=== PATIENT | male | born 1945 | race Caucasian/White ===

== ENCOUNTER → 2017-09-17 | Day surgery (SDC) | payer BC ==
[2017-09-16 10:54] VITALS: Ht 175.3 cm; Wt 89.5 kg
--- NOTE | 2017-09-16 16:09 | History and Physical: Surg Cnt ---
History & Physical Date Sep 16, 2017. Chief Complaint nose bleed History of Present Illness The patient is a 72 year old male with complaints of persistent epistaxis Past Medical/Surgical History Medical Problems: (1) Atrial flutter by electrocardiogram (2) Diabetes mellitus type 2 (3) Gastroesophageal reflux disease (4) Hypothyroidism (5) Lactose intolerance Additional History Hepatic Disease: No Endocrine Disorder: No Kidney Disease: No Hypertension: No Heart Disease: Yes Bleeding Tendencies: Yes Infectious Diseases: No Allergies Coded Allergies: Sulfamethoxazole w/Trimethoprim (Verified Adverse Reaction, Mild, BAD DIARRHEA, 09/16/17) Lactose Intolerance (Verified Adverse Reaction, Unknown, BLOATING/FULLNESS , 09/16/17) CONTROLLED W/ LACTASE Home Medications Scheduled Allopurinol (Zyloprim), 300 MG PO QPM Aspirin Enteric Coated (Ecotrin Or Generic), 81 MG PO QAM Atorvastatin (Lipitor), 20 MG PO QPM Dabigatran Etexilate Mesylate (Pradaxa), 1 CAP PO BID Digestive Enzymes (Papaya Enzyme), 1 TAB PO QAM Eplerenone (Eplerenone), 25 MG PO QAM Eszopiclone (Lunesta), 3 MG PO HS Furosemide (Lasix), 2 TABS PO 3XWK Guaifenesin Ext Rel (Mucinex Ext Rel), 2 TABS PO BID Levothyroxine Sodium (Synthroid), 175 MCG PO QAM Metoprolol Tartrate (Lopressor) (Lopressor), 1 TAB PO QPM Metoprolol Tartrate (Lopressor) (Lopressor), 2 TABS PO QAM Multivitamin (Multivitamin), 1 TAB PO QAM Nitroglycerin (Nitrostat), 0.4 MG UT PRN Potassium Chloride (Micro-K Ext Rel), 10 MEQ PO QPM Probiotic Product (Probiotic), 2 CAP PO QAM Rabeprazole Sodium (Aciphex), 20 MG PO QAM Sotalol Hcl (Sotalol Hcl), 1 TAB PO BID Scheduled PRN Lactase (Lactase Fast Acting), 1 TAB PO WM PRN for DAIRY INTAKE Miscellaneous Medications Magnesium Oxide (Mag-Ox), 400 MG PO Physical Examination Skin: warm/dry, no rash Eyes: normal inspection, EOMI, sclerae normal ENT: normal ENT inspection, pharynx normal Head: normocephalic, atraumatic Neck: supple, no adenopathy, trachea midline Respiratory/Chest: lungs clear, normal breath sounds, no respiratory distress Cardiovascular: regular rate, rhythm, no edema, no murmur Abdomen / GI: normal bowel sounds, non tender Back: normal inspection Extremities: normal inspection, normal range of motion Neurologic/Psych: no motor/sensory deficits, alert, normal reflexes, oriented x 3 Diagnosis epistaxis Plan of Treatment endoscopic cautery
[~2017-09-17] VITALS: Ht 175.3 cm; Wt 89.5 kg
[~2017-09-17] MED LIST: ALLO300T2 PO; ASPI81TA21 PO; ATOR-54 PO; BACITRACIN OINT 15 GM TUBE ONE; DABI1CAP PO; DIGETAB13 PO; EPLE25TA3 PO; ESZO3TAB15 PO; EpINEphrine INJ 1MG/ML AMP 1 MG/ML AMP ONE; FURO-85 PO; GELATIN SPONGE 12-7MM ONE; GFNSR600 PO; HYDROCODONE/ACETAMOPHEN 5/325MG TAB PO PRN; LEVO175T PO; LIDO 2%/EPINEPHRINE 1:100000 20 ML VIAL INFIL ONE; LIDOCAINE 4% MPF SOAK 5 ML = 1 DOSE TOP ONE; MAGN400T6 PO; METO25TA56 PO; MISCCAP80 PO; MULT-506 PO; NTRGSL/4 UT; POTA10CA28 PO; RABE20TA5 PO; SODIUM CHLORIDE 0.9% 1000ML 1,000 ML IV SCH; SOTA120T PO; TETRACAINE 4% TOPICAL SOLUTION TOP ONE; [UNRECOGNIZED DRUG - CODE] PO
--- NOTE | 2017-09-17 07:00 | History & Physical Bridge Note ---
H&P Re-Evaluation Bridge Note: I have examined the patient, reviewed the History & Physical and in the interval since the performance of the History & Physical I have noted the following changes of clinical significance: No changes noted
--- NOTE | 2017-09-17 09:50 | Discharge Instructions-SurgCtr ---
Discharge Instructions Date of Service Sep 17, 2017. Visit Reason for Visit: Epistaxis Discharge Discharge Diagnosis / Problem: same Discharge Goals Goal(s): Therapeutic intervention Activity Recommendations Activity Limitations: resume your previous activity Anesthesia . Post Anesthesia Instructions: If you have had General Anesthesia or IV Sedation: * Do not drive today. * Resume driving when surgeon permits. * Do not make important decisions or sign legal documents today. * Call surgeon for: 1. Temperature elevations greater than 101 degrees F. 2. Uncontrollable pain. 3. Excessive bleeding. 4. Persistent nausea and vomiting. 5. Medication intolerance (nausea, vomiting or rash). * For nausea and vomiting use only clear liquids such as: tea, soda, bouillon until nausea subsides, then gradually increase diet as tolerated. * If you have any concerns or questions, call your surgeon's office. If physician is unavailable and it is an emergency, call 911 or go to the nearest emergency room. . Instructions / Follow-Up Instructions / Follow-Up ACTIVITY RECOMMENDATIONS: * Being up and around is good, but no strenuous activity, heavy lifting or physical exertion for one week. * Keep your head elevated 30 degrees when lying down or sleeping. * Do not blow your nose for 48 hours, sniff back instead. * Avoid hot showers. OVER THE COUNTER MEDICATIONS: * You may use Tylenol * Avoid aspirin or aspirin containing products, e.g. as they may increase bleeding. SPECIAL CARE INSTRUCTIONS: * Expect to have bloody drainage from your nose and/or down your throat for one to three days. Change drip pad as needed. * Begin irrigating your nose with saline solution today, at least six to ten times per day and sniff back to help remove old clots or crust. * You may experience nasal and facial congestion, pain and pressure, this is normal. * Please call with any significant and/or progressive pain, redness, swelling around the eyes, visual changes, fever of 101.5 degrees F, active bleeding or any problems or concerns. * If active bleeding occurs, spray the nose three times at one minute intervals with Afrin spray and call or cell phone: . If unable to reach the doctor, go to the nearest Emergency Department. Special Diet: * Avoid extremely hot fluids. FOLLOW UP VISIT: Follow-up Visit with Dr. Ramy If not already scheduled, please call to schedule. Diet Recommendations Home Diet: no limitations Pending Studies Studies pending at discharge: no Medical Emergencies . Who to Call and When: Medical Emergencies: If at any time you feel your situation is an emergency, please call 911 immediately. . Non-Emergent Contact Non-Emergency issues call your: Primary Care Provider . . "Provider Documentation" section prepared by Mary Kay Mccann. Kiersten PA Drug Monitoring Program Search Results: no issues identified
--- NOTE | 2017-09-17 09:52 | History & Physical Bridge Note ---
H&P Re-Evaluation Bridge Note: I have examined the patient, reviewed the History & Physical and in the interval since the performance of the History & Physical I have noted the following changes of clinical significance: ASA class 3. No changes noted
[2017-09-17 11:41] VITALS: TEMP 36.5
[2017-09-17 11:55] VITALS: BP 121/73; PULSE 67; O2SAT 94
--- NOTE | 2017-09-17 12:13 | OPERATIVE REPORT ---
DATE OF OPERATION: 09/17/2017 PREOPERATIVE DIAGNOSIS: Epistaxis. POSTOPERATIVE DIAGNOSIS: Same. PROCEDURE: Endoscopic cautery and right nasal packing. SURGEON: Mary Kay Mccann MD ANESTHESIA: Strict local. COMPLICATIONS: None. BLOOD LOSS: Less than 20 mL. HISTORY OF PRESENT ILLNESS: A 72-year-old gentleman with severe bleeding this past weekend, he was treated at [facility] but continues to have bleeding and clots in the right nostril and less so in the left nostril. Above procedure felt to be indicated. DESCRIPTION OF PROCEDURE: The patient was brought to the operating room and placed in the supine position. Topical anesthesia was obtained using 4% tetracaine on cottonoid pledgets. Injection of 2% Xylocaine with 1:100,000 strength epinephrine was also used. The major bleeder was under the clot on the right side of the septum approximately 2.5 cm in at the mid septum. This was anesthetized using injection of 2% Xylocaine with 1:100,000 strength epinephrine and then cauterized using the suction cautery. There was another bleeding site along the right inferior turbinate, which was cauterized. On the left side of the nose, there were 2 spots on the left side of the septum and then another 2 spots at the anterior and mid portion of the left inferior turbinate. All 4 of these sites on the left side were cauterized using the suction cautery after injecting with 2% Xylocaine with 1:100,000 strength epinephrine. The half piece of Gelfoam was placed along the right side of the septum along the opposite major bleeding site. The patient tolerated the procedure well and was taken to the recovery area in satisfactory condition. I attest to the content of the Intraoperative Record and any orders documented therein. Any exceptions are noted below. MELLISSAD
== END | disposition home or self-care (01) ==
LOC: X.SURG 09:13
PROVIDERS: ATTEND Otolaryngology
DX: R04.0 Epistaxis (principal); E11.9 Type 2 diabetes mellitus without complications; E03.9 Hypothyroidism, unspecified; K21.9 Gastro-esophageal reflux disease without esophagitis; Z79.899 Other long term (current) drug therapy

== ENCOUNTER 2018-02-07 05:05 | Inpatient (IN) | payer BC, OTHER ==
[2018-02-07] VITALS (34 sets, daily range): BP systolic 65–105; BP diastolic 30–76; PULSE 60–154; TEMP 36.5–37.2; O2SAT 87–100; Ht 167.6 cm; Wt 113.0 kg
[~2018-02-07] VITALS: Ht 167.6 cm; Wt 113.0 kg
[~2018-02-07 05:05] MED LIST changes: +ASPI-319 PO; -ASPI81TA21 PO; -BACITRACIN OINT 15 GM TUBE ONE; +ETOMIDATE 2 MG/ML 20 ML VIAL IV ONE; -EpINEphrine INJ 1MG/ML AMP 1 MG/ML AMP ONE; +FENTANYL CITRATE 100 MCG 2 ML CARP IV ONE; -GELATIN SPONGE 12-7MM ONE; -HYDROCODONE/ACETAMOPHEN 5/325MG TAB PO PRN; -LIDO 2%/EPINEPHRINE 1:100000 20 ML VIAL INFIL ONE; -LIDOCAINE 4% MPF SOAK 5 ML = 1 DOSE TOP ONE; +MIDAZOLAM HCL 5 MG/ML 2ML VIAL IV ONE; -SODIUM CHLORIDE 0.9% 1000ML 1,000 ML IV SCH; +SUCCINYLCHOLINE CHLORIDE 20 MG/ML 10 ML VIAL IV ONE; -TETRACAINE 4% TOPICAL SOLUTION TOP ONE
[2018-02-07] MEDS ORDERED: METF500T5 PO (05:56)
--- NOTE | 2018-02-07 06:10 | EMERGENCY ROOM VISIT NOTE ---
History Report prepared by Tricia: Yecenia Stroud Under the Supervision of: Dr. Luz Elena Simmons M.D. First contact with patient: 05:22 Chief Complaint: RESPIRATORY PROBLEMS Stated Complaint: BREATHING DIFFICULTY Nursing Triage Summary: Patient arrived via EMS. EMS report patient was recently hospitalized for aortic valve replacement. Patient at home developed difficulty breathing with general illness symptoms. Patient brought in on 6l o2nc. History of Present Illness The patient is a 72 year old male who presents to the Emergency Room with complaints of persistent SOB, low oxygen saturations and a low grade (99.3) fever since last night. 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 The patient recently had a aortic valve replacement January 15, 2018. The patient has a history of atrial fibrillation and regularly takes Pradaxa. Per , the patient was recently seen February 02, [address] Rainey and was placed on 2L oxygen via NC. He also had laboratory work which was apparently at his baseline per . 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 She notes the patient's oxygen level has been abnormally low throughout the week. She notes that he developed a fever of 99.3 with chills last night and only slept for two hours. She did give Tylenol at 11 PM. The patient has a loss of appetite and has not been eating well. The patient denies any diarrhea, bloody stools, or black stools. The patient also has a history of lymphoma and pneumonitis. Of note the patient was given 500 cc bolus of LR solution by EMS prior to arrival. Source of History: patient, spouse/significant other Onset: since last night Position: other (general ) Quality: other (fever) Timing: other (persistent) Associated Symptoms: + chills, + SOB Note: Note loss of appetite and sleep. Review of Systems See HPI for pertinent positives & negatives. A total of 10 systems reviewed and were otherwise negative. Past Medical & Surgical Medical Problems: (1) Atrial flutter by electrocardiogram (2) Diabetes mellitus type 2 (3) Gastroesophageal reflux disease (4) Hypothyroidism (5) Lactose intolerance Family History No pertinent family history Social History Smoking Status: Never Smoker Alcohol Use: none Marital Status: Housing Status: lives with significant other Occupation Status: unemployed Current/Historical Medications Scheduled Allopurinol (Zyloprim), 300 MG PO QPM Aspirin Enteric Coated (Ecotrin Or Generic), 81 MG PO QAM Atorvastatin (Lipitor), 20 MG PO QPM Dabigatran Etexilate Mesylate (Pradaxa), 1 CAP PO BID Digestive Enzymes (Papaya Enzyme), 1 TAB PO QAM Eplerenone (Eplerenone), 25 MG PO QAM Eszopiclone (Lunesta), 3 MG PO HS Furosemide (Lasix), 2 TABS PO DAILY Guaifenesin Ext Rel (Mucinex Ext Rel), 2 TABS PO BID Levothyroxine Sodium (Synthroid), 175 MCG PO QAM Magnesium Oxide (Mag-Ox), 400 MG PO DAILY Metformin Hcl Er (Glucophage Er), 500 MG PO DAILY Metoprolol Tartrate (Lopressor) (Lopressor), 1 TAB PO QPM Metoprolol Tartrate (Lopressor) (Lopressor), 2 TABS PO QAM Potassium Chloride (Micro-K Ext Rel), 10 MEQ PO QPM Probiotic Product (Probiotic), 2 CAP PO QAM Rabeprazole Sodium (Aciphex), 20 MG PO QAM Sotalol Hcl (Sotalol Hcl), 1 TAB PO BID Scheduled PRN Lactase (Lactase Fast Acting), 1 TAB PO WM PRN for DAIRY INTAKE Nitroglycerin (Nitrostat), 0.4 MG UT UD PRN for Chest Pain Allergies Coded Allergies: Sulfamethoxazole w/Trimethoprim (Verified Adverse Reaction, Mild, BAD DIARRHEA, 02/07/18) Lactose Intolerance (Verified Adverse Reaction, Unknown, BLOATING/FULLNESS , 02/07/18) CONTROLLED W/ LACTASE Physical Exam Vital Signs Date Time Temp Pulse Resp B/P (MAP) Pulse Ox O2 Delivery O2 Flow Rate FiO2 02/07/18 07:38 99 97 6.0 02/07/18 07:36 102 24 133/68 95 BiPAP 02/07/18 07:28 96 BiPAP 02/07/18 07:21 101 96 02/07/18 07:16 105 96 02/07/18 07:11 103 94 02/07/18 07:06 106 95 02/07/18 07:01 101 42 159/74 95 02/07/18 06:56 102 28 96 02/07/18 06:51 102 36 97 02/07/18 06:46 93 35 96 02/07/18 06:41 94 31 96 02/07/18 06:36 96 32 96 02/07/18 06:31 96 32 95 02/07/18 06:26 95 31 93 02/07/18 06:21 96 45 93 02/07/18 06:16 93 42 96 02/07/18 06:11 145/84 02/07/18 06:08 145/84 02/07/18 06:05 90 26 99 Nasal Cannula 6.0 02/07/18 05:35 94 24 97 Nasal Cannula 6.0 02/07/18 05:25 91 02/07/18 05:24 93 Nasal Cannula 6.0 02/07/18 05:23 93 Nasal Cannula 6.0 02/07/18 05:14 93 Nasal Cannula 6.0 02/07/18 05:14 36.5 96 20 151/71 93 Nasal Cannula 6.0 02/07/18 05:11 151/71 Physical Exam Vital signs reviewed. General: Chronically ill appearing 72-year-old male, on nasal cannula oxygen. Pale with increased work of breathing. HEENT: No scleral icterus, PERRLA, neck supple. Atraumatic. Pale conjunctiva. Cardiovascular: Regular rate and rhythm, no extra sounds. Pulmonary: Right decreased breath sounds with rhonchi. Left with faint scattered rhonchi, diminished sounds. Increased work of breathing on nasal cannula oxygen at 6 L/min Abdomen: Soft, nontender, nondistended, positive bowel sounds. Musculoskeletal: Atraumatic, minimal peripheral edema. Neurologic: Somnolent but arousable. Answers questions with short sentences. Follows commands but appears to be somewhat confused. Skin: Warm, dry, pale but no rash. Medical Decision & Procedures ER Provider Diagnostic Interpretation: Radiology results as stated below per my review and radiologist interpretation: CHEST XR: Elevated right hemidiaphragm. Pacemaker. Post sternotomy wires. Congestive heart failure. CHEST ONE VIEW PORTABLE CLINICAL HISTORY: Difficulty breathing COMPARISON STUDY: 09/08/2016 FINDINGS: The heart is enlarged. There are postsurgical changes of a midline sternotomy and aortic valve replacement. There is a right subclavian dual-chamber central venous pacemaker.[There is radiographic evidence of pulmonary edema. There is an increasing right pleural effusion. Right basal airspace opacities while nonspecific likely represent associated atelectatic change. IMPRESSION: Worsening pulmonary edema with an increasing right pleural effusion. Right basal airspace opacities, likely representing associated compressive atelectasis. Electronically signed by: Adin Frye M.D. 02/07/2018 6:36 AM Dictated Date/Time: 02/07/2018 6:34 AM Laboratory Results 02/07/18 05:13 Red Blood Count 4.02, Mean Corpuscular Volume 85.1, Mean Corpuscular Hemoglobin 27.1, Mean Corpuscular Hemoglobin Concent 31.9, Neutrophils (%) (Auto) 89.8, Lymphocytes (%) (Auto) 1.4, Monocytes (%) (Auto) 8.1, Eosinophils (%) (Auto) 0.2 , Basophils (%) (Auto) 0.2, Neutrophils # (Auto) 9.87, Lymphocytes # (Auto) 0.15 , Monocytes # (Auto) 0.89, Eosinophils # (Auto) 0.02, Basophils # (Auto) 0.02 02/07/18 05:13 Test 02/07/18 05:13 02/07/18 05:15 02/07/18 07:40 02/07/18 07:53 White Blood Count 10.98 K/uL (4.8-10.8) Red Blood Count 4.02 M/uL (4.7-6.1) Hemoglobin 10.9 g/dL (14.0-18.0) Hematocrit 34.2 % (42-52) Mean Corpuscular Volume 85.1 fL (80-100) Mean Corpuscular Hemoglobin 27.1 pg (25-34) Mean Corpuscular Hemoglobin Concent 31.9 g/dl (32-36) Platelet Count 103 K/uL (130-400) Neutrophils (%) (Auto) 89.8 % Lymphocytes (%) (Auto) 1.4 % Monocytes (%) (Auto) 8.1 % Eosinophils (%) (Auto) 0.2 % Basophils (%) (Auto) 0.2 % Neutrophils # (Auto) 9.87 K/uL (1.4-6.5) Lymphocytes # (Auto) 0.15 K/uL (1.2-3.4) Monocytes # (Auto) 0.89 K/uL (0.11-0.59) Eosinophils # (Auto) 0.02 K/uL (0-0.5) Basophils # (Auto) 0.02 K/uL (0-0.2) RDW Standard Deviation 58.8 fL (36.4-46.3) RDW Coefficient of Variation 18.7 % (11.5-14.5) Immature Granulocyte % (Auto) 0.3 % Immature Granulocyte # (Auto) 0.03 K/uL (0.00-0.02) Platelet Estimate DECREASED Red Blood Cell Morphology Unremarkable Prothrombin Time 13.8 SECONDS (9.0-12.0) Prothromb Time International Ratio 1.3 (0.9-1.1) Activated Partial Thromboplast Time 36.5 SECONDS (21.0-31.0) Partial Thromboplastin Ratio 1.4 Anion Gap 9.0 mmol/L (3-11) Est Creatinine Clear Calc Drug Dose 69.3 ml/min Estimated GFR () 75.1 Estimated GFR (Non- 64.8 BUN/Creatinine Ratio 28.4 (10-20) Calcium Level 8.7 mg/dl (8.5-10.1) Magnesium Level 1.8 mg/dl (1.8-2.4) Total Bilirubin 1.3 mg/dl (0.2-1) Direct Bilirubin 0.5 mg/dl (0-0.2) Aspartate Amino Transf (AST/SGOT) 28 U/L (15-37) Alanine Aminotransferase (ALT/SGPT) 24 U/L (12-78) Alkaline Phosphatase 113 U/L (45-117) Total Creatine Kinase 110 U/L (39-308) Pro-B-Type Natriuretic Peptide 1860 pg/ml (0-900) Total Protein 8.0 gm/dl (6.4-8.2) Albumin 3.3 gm/dl (3.4-5.0) Urine Color YELLOW Urine Appearance CLEAR (CLEAR) Urine pH 5.0 (4.5-7.5) Urine Specific [place] 1.023 (1.000-1.030) Urine Protein 2+ (NEG) Urine Glucose (UA) NEG (NEG) Urine Ketones NEG (NEG) Urine Occult Blood NEG (NEG) Urine Nitrite NEG (NEG) Urine Bilirubin NEG (NEG) Urine Urobilinogen NEG (NEG) Urine Leukocyte Esterase NEG (NEG) Urine WBC (Auto) 1-5 /hpf (0-5) Urine RBC (Auto) 0-4 /hpf (0-4) Urine Hyaline Casts (Auto) 0 /lpf (0-5) Urine Epithelial Cells (Auto) 10-20 /lpf (0-5) Urine Bacteria (Auto) NEG (NEG) Laboratory results per my review. Medications Administered Medications (Trade) Dose Ordered Sig/Veronica Route Start Time Stop Time Status Last Admin Dose Admin Furosemide (Lasix Inj) 40 mg NOW STAT IV 02/07/18 06:12 02/07/18 06:13 DC 02/07/18 06:36 40 MG ECG Per My Interpretation Indication: SOB/dyspnea Rate (beats per minute): 96 Rhythm: normal sinus Findings: nonspecific-ST abn, other (Poor quality baseline for interpretation. Previous inferior infarct.) ED Course 0557: Past medical records reviewed. The patient was evaluated in room B8. A complete history and physical examination was performed. 0703: I reassessed the patient at this time. I discussed the results from the XR. 0653: I spoke with Dr. Haddad, [facility]. We discussed the patient's case. [facility]. 0715: I reassessed the patient at this time. I explained the necessity of the BiPAP. Medical Decision Differential diagnosis: Etiologies such as infections, reactive airway disease, pneumonia, pneumothorax , COPD, CHF, cardiac ischemia, pulmonary embolism, musculoskeletal, gastrointestinal, as well as others were entertained. This patient was evaluated and appeared to be in significant respiratory discomfort. Patient was maintaining his oxygenation on 6 L nasal cannula. Patient's breath sounds are coarse and diminished bilaterally. Chest x-ray confirms congestive heart failure. Patient was given 40 mg of IV Lasix. BiPAP was ordered but there was a delay and application. EKG reveals a poor quality baseline but no evidence of acute ST elevation. He is in a sinus rhythm. Patient was somewhat delirious during my evaluation. He attempted to climb out of bed. Patient did not initially appreciate the BiPAP mask however he did relax. Patient did began to diurese. Dr[facility]. Patient and were advised of the plan and agree. Medication Reconcilliation Current Medication List: was personally reviewed by me Consults Time Called: [phone] Consulting Physician: Dr. Haddad, [facility] Returned Call: [phone] Haddad, [facility] hospitalist. We discussed the patient's case. [facility]. Impression Primary Impression: CHF (congestive heart failure) Additional Impression: S/P TAVR (transcatheter aortic valve replacement) Critical Care I have personally spent greater than 90 minutes of critical care time in the direct management of this patient. This includes bedside care, interpretation of diagnostic studies, and testing, discussion with consultants, patient, and family members, and other required patient management activities. This 35 minutes is in excess of all separately billable procedures. Scribe Attestation The scribe's documentation has been prepared under my direction and personally reviewed by me in its entirety. I confirm that the note above accurately reflects all work, treatment, procedures, and medical decision making performed by me. Departure Information Dispostion Being Evaluated By Hospitalist Referrals Mary Kay Mccann M.D. (PCP) Patient Instructions My [facility] Problem Qualifiers
[2018-02-07] MEDS ORDERED: FUROSEMIDE 40 MG/4 ML VIAL IV STA (06:12)
[2018-02-07 06:24] LABS: MEAN CORPUSCULAR HGB CONC 31.9 g/dl (32-36)
[2018-02-07 06:32] LABS: ALBUMIN 3.3 gm/dl (3.4-5.0); CALCIUM 8.7 mg/dl (8.5-10.1); CREATININE 1.12 mg/dl (0.60-1.40); POTASSIUM 4.4 mmol/L (3.5-5.1)
--- NOTE | 2018-02-07 06:38 | DIAGNOSTIC IMAGING REPORT ---
CHEST ONE VIEW PORTABLE CLINICAL HISTORY: Difficulty breathing COMPARISON STUDY: 09/08/2016 FINDINGS: The heart is enlarged. There are postsurgical changes of a midline sternotomy and aortic valve replacement. There is a right subclavian dual-chamber central venous pacemaker.[There is radiographic evidence of pulmonary edema. There is an increasing right pleural effusion. Right basal airspace opacities while nonspecific likely represent associated atelectatic change. IMPRESSION: Worsening pulmonary edema with an increasing right pleural effusion. Right basal airspace opacities, likely representing associated compressive atelectasis. Electronically signed by: Adin Frye M.D. 02/07/2018 6:36 AM Dictated Date/Time: 02/07/2018 6:34 AM
[2018-02-07 06:43] LABS: INR 1.3 (0.9-1.1); PTT PATIENT 36.5 SECONDS (21.0-31.0)
[2018-02-07 06:45] LABS: HEMATOCRIT 34.2 % (42-52); HEMOGLOBIN 10.9 g/dL (14.0-18.0); MEAN CELL VOLUME 85.1 fL (80-100); MEAN CORPUSCULAR HEMOGLOBIN 27.1 pg (25-34); RED CELL DISTRIBUTION WIDTH CV 18.7 % (11.5-14.5); RED CELL DISTRIBUTION WIDTH SD 58.8 fL (36.4-46.3); WHITE BLOOD COUNT 10.98 K/uL (4.8-10.8)
[2018-02-07 06:57] LABS: BASO % 0.2 %; BASO ABS # 0.02 K/uL (0-0.2); EOS % 0.2 %; EOS ABS # 0.02 K/uL (0-0.5); IG# 0.03 K/uL (0.00-0.02); LYMPH % 1.4 %; LYMPH ABS # 0.15 K/uL (1.2-3.4); MONO % 8.1 %; MONO ABS # 0.89 K/uL (0.11-0.59); NEUT % 89.8 %; NEUT ABS # 9.87 K/uL (1.4-6.5); PLATELET COUNT 103 K/uL (130-400)
[2018-02-07] MEDS ORDERED: ACETAMINOPHEN 325 MG TAB PO PRN (07:45)
[2018-02-07] MEDS ORDERED: MAGNESIUM HYDROXIDE SUSP 30 ML UDC PO PRN (07:45)
[2018-02-07] MEDS ORDERED: ALUMINUM/MAGNESIUM/SIMETH (MAALOX MAX) 30 ML UDC PO PRN (07:45)
[2018-02-07] MEDS ORDERED: NITROGLYCERIN 0.4 MG SL PER TAB CHARGE SL PRN (07:45)
[2018-02-07] MEDS ORDERED: LACTASE PO PRN (08:00)
[2018-02-07] MEDS ORDERED: NITROGLYCERIN 0.4 MG SL PER TAB CHARGE UT PRN (08:00)
--- NOTE | 2018-02-07 08:47 | History and Physical ---
History & Physical Date & Time of Service: Feb 07, 2018 at 08:47 Chief Complaint: Breathing Difficulty Primary Care Physician: Yg Rainey M.D. 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 Repeat cardiac cath in November 2014 showed occlusion of all venous grafts except for saphenous vein grafts to the posterior descending artery. He received a drug-eluting stent to the left second flex distal segment, drug- eluting stent to the vein graft to the posterior descending artery, and balloon angioplasty of the first obtuse marginal . Patient has history of A. fib a flutter status post cardioversion, history of bradycardic cardiac arrest status post dual chamber pacemaker placement in October 2012 and [facility]. History of severe aortic stenosis, status post transcutaneous aortic valve replacement/T AVR on 01/15/2018 with bioprosthetic aortic valve at [facility] History is limited from the patient due to respiratory distress, on BiPAP, Increased lethargy Most of the information obtained from , present at bedside According to patient had uncomplicated recovery from test for done on January 15 at [facility] Was discharged in 48 hours, patient felt absolutely fine His prior shortness of breath/dyspnea on exertion/orthopnea was resolved Patient drove himself from [place] to [place] with complaining him Had a post procedure follow-up with Dr. Yg Rainey at [facility] cardiology suite on January 20, 2018 Patient reported improvement of exercise tolerance, dyspnea on exertion. Was frustrated as he was not feeling dramatically improved after followed replacement as he expected Postprocedure echocardiogram at [facility] showed only trace aortic insufficiency and preserved LV systolic function Patient had a trip to [place] next week, developed significant shortness of breath, dyspnea on exertion, marked fatigue with minimum activity, on pulse oximetry showed oxygen level dropping to low 80s with exertion On return to [place] had a appointment with Dr. Rainey on 02/03 2018 Repeat echocardiogram was ordered Lasix dose was increased to 40 mg daily for the next 3 days Arrangements made for home oxygen Past 48 hours patient's respiratory status declined further Able to sleep last night for significant shortness of breath, no improvement with supplemental oxygen In ER: Patient was found to be significantly hypoxic/tachypnea and respiratory distress/ Placed on BiPAP found to be in a flutter heart rate of 150-160 Chest x-ray shows pulmonary congestion ProBNP elevated 1080 Past Medical/Surgical History Medical Problems: (1) Atrial flutter by electrocardiogram (2) Coronary artery disease (3) Dehydration (4) Diabetes mellitus type 2 (5) Gastroesophageal reflux disease (6) Hypothyroidism (7) Lactose intolerance (8) Near syncope Family History No pertinent family history Social History Smoking Status: Never Smoker Marital Status: Housing status: lives with family Occupational Status: unemployed Immunizations History of Influenza Vaccine: Yes History of Tetanus Vaccine?: No History of Pneumococcal: Yes History of Hepatitis B Vaccine: No Multi-Drug Resistant Organisms History of MDRO: No Allergies Coded Allergies: Sulfamethoxazole w/Trimethoprim (Verified Adverse Reaction, Mild, BAD DIARRHEA, 02/07/18) Lactose Intolerance (Verified Adverse Reaction, Unknown, BLOATING/FULLNESS , 02/07/18) CONTROLLED W/ LACTASE Home Medications Scheduled Allopurinol (Zyloprim), 300 MG PO QPM Aspirin Enteric Coated (Ecotrin Or Generic), 81 MG PO QAM Atorvastatin (Lipitor), 20 MG PO QPM Dabigatran Etexilate Mesylate (Pradaxa), 1 CAP PO BID Digestive Enzymes (Papaya Enzyme), 1 TAB PO QAM Eplerenone (Eplerenone), 25 MG PO QAM Eszopiclone (Lunesta), 3 MG PO HS Furosemide (Lasix), 2 TABS PO DAILY Guaifenesin Ext Rel (Mucinex Ext Rel), 2 TABS PO BID Levothyroxine Sodium (Synthroid), 175 MCG PO QAM Magnesium Oxide (Mag-Ox), 400 MG PO DAILY Metformin Hcl Er (Glucophage Er), 500 MG PO DAILY Metoprolol Tartrate (Lopressor) (Lopressor), 1 TAB PO QPM Metoprolol Tartrate (Lopressor) (Lopressor), 2 TABS PO QAM Potassium Chloride (Micro-K Ext Rel), 10 MEQ PO QPM Probiotic Product (Probiotic), 2 CAP PO QAM Rabeprazole Sodium (Aciphex), 20 MG PO QAM Sotalol Hcl (Sotalol Hcl), 1 TAB PO BID Scheduled PRN Lactase (Lactase Fast Acting), 1 TAB PO WM PRN for DAIRY INTAKE Nitroglycerin (Nitrostat), 0.4 MG UT UD PRN for Chest Pain Review of Systems Constitutional: + sweats, + weakness, + fatigue Respiratory: + shortness of breath, + dyspnea on exertion, + dyspnea at rest Cardiovascular: + chest pain, + orthopnea, + PND, + palpitations Neurologic: + weakness Psychiatric: + anxiety Physical Exam Vital Signs Date Time Temp Pulse Resp B/P (MAP) Pulse Ox O2 Delivery O2 Flow Rate FiO2 02/07/18 08:41 146 35 94 02/07/18 08:31 121/71 02/07/18 08:26 108 30 94 02/07/18 08:11 102 41 92 02/07/18 08:01 100 36 137/71 93 BiPAP 02/07/18 08:01 136/71 02/07/18 07:59 102 02/07/18 07:56 101 35 92 02/07/18 07:46 145/75 02/07/18 07:41 103 41 96 02/07/18 07:38 99 97 6.0 02/07/18 07:36 102 24 133/68 95 BiPAP 02/07/18 07:31 133/68 02/07/18 07:28 96 BiPAP 02/07/18 07:26 99 29 95 02/07/18 07:21 101 96 02/07/18 07:16 105 96 02/07/18 07:11 103 94 02/07/18 07:06 106 95 02/07/18 07:01 101 42 159/74 95 02/07/18 06:56 102 28 96 02/07/18 06:51 102 36 97 02/07/18 06:46 93 35 96 02/07/18 06:41 94 31 96 02/07/18 06:36 96 32 96 02/07/18 06:31 96 32 95 02/07/18 06:26 95 31 93 02/07/18 06:21 96 45 93 02/07/18 06:16 93 42 96 02/07/18 06:11 145/84 02/07/18 06:08 145/84 02/07/18 06:05 90 26 99 Nasal Cannula 6.0 02/07/18 05:35 94 24 97 Nasal Cannula 6.0 02/07/18 05:25 91 02/07/18 05:24 93 Nasal Cannula 6.0 02/07/18 05:23 93 Nasal Cannula 6.0 02/07/18 05:14 93 Nasal Cannula 6.0 02/07/18 05:14 36.5 96 20 151/71 93 Nasal Cannula 6.0 02/07/18 05:11 151/71 General Appearance: + moderate distress (Respiratory distress on BiPAP) Eyes: sclerae normal Neck: + JVD Respiratory/Chest: + respiratory distress, + decreased breath sounds, + accessory muscle use, + crackles, + rales Cardiovascular: + JVD, + irregularly irregular Abdomen/GI: non tender, soft Extremities/Musculoskelatal: + pedal edema (+1), + pertinent finding ( Increased fatigue/lethargy/able to open up eyes with voice and answer questions) Diagnostics Laboratory Results Results Past 24 Hours Test 02/07/18 05:13 02/07/18 05:15 Range/Units White Blood Count 10.98 4.8-10.8 K/uL Red Blood Count 4.02 4.7-6.1 M/uL Hemoglobin 10.9 14.0-18.0 g/dL Hematocrit 34.2 42-52 % Mean Corpuscular Volume 85.1 80-100 fL Mean Corpuscular Hemoglobin 27.1 25-34 pg Mean Corpuscular Hemoglobin Concent 31.9 32-36 g/dl Platelet Count 103 130-400 K/uL Neutrophils (%) (Auto) 89.8 % Lymphocytes (%) (Auto) 1.4 % Monocytes (%) (Auto) 8.1 % Eosinophils (%) (Auto) 0.2 % Basophils (%) (Auto) 0.2 % Neutrophils # (Auto) 9.87 1.4-6.5 K/uL Lymphocytes # (Auto) 0.15 1.2-3.4 K/uL Monocytes # (Auto) 0.89 0.11-0.59 K/uL Eosinophils # (Auto) 0.02 0-0.5 K/uL Basophils # (Auto) 0.02 0-0.2 K/uL RDW Standard Deviation 58.8 36.4-46.3 fL RDW Coefficient of Variation 18.7 11.5-14.5 % Immature Granulocyte % (Auto) 0.3 % Immature Granulocyte # (Auto) 0.03 0.00-0.02 K/uL Platelet Estimate DECREASED Red Blood Cell Morphology Unremarkable Prothrombin Time 13.8 9.0-12.0 SECONDS Prothromb Time International Ratio 1.3 0.9-1.1 Activated Partial Thromboplast Time 36.5 21.0-31.0 SECONDS Partial Thromboplastin Ratio 1.4 D-Dimer 1080 0-500 ug/L FEU Sodium Level 131 136-145 mmol/L Potassium Level 4.4 3.5-5.1 mmol/L Chloride Level 98 98-107 mmol/L Carbon Dioxide Level 24 21-32 mmol/L Anion Gap 9.0 3-11 mmol/L Blood Urea Nitrogen 32 7-18 mg/dl Creatinine 1.12 0.60-1.40 mg/dl Est Creatinine Clear Calc Drug Dose 69.3 ml/min Estimated GFR () 75.1 Estimated GFR (Non- 64.8 BUN/Creatinine Ratio 28.4 10-20 Random Glucose 173 70-99 mg/dl Calcium Level 8.7 8.5-10.1 mg/dl Magnesium Level 1.8 1.8-2.4 mg/dl Total Bilirubin 1.3 0.2-1 mg/dl Direct Bilirubin 0.5 0-0.2 mg/dl Aspartate Amino Transf (AST/SGOT) 28 15-37 U/L Alanine Aminotransferase (ALT/SGPT) 24 12-78 U/L Alkaline Phosphatase 113 45-117 U/L Total Creatine Kinase 110 39-308 U/L Troponin I 0.020 0-0.045 ng/ml Pro-B-Type Natriuretic Peptide 1860 0-900 pg/ml Total Protein 8.0 6.4-8.2 gm/dl Albumin 3.3 3.4-5.0 gm/dl Urine Color YELLOW Urine Appearance CLEAR CLEAR Urine pH 5.0 4.5-7.5 Urine Specific [place] 1.023 1.000-1.030 Urine Protein 2+ NEG Urine Glucose (UA) NEG NEG Urine Ketones NEG NEG Urine Occult Blood NEG NEG Urine Nitrite NEG NEG Urine Bilirubin NEG NEG Urine Urobilinogen NEG NEG Urine Leukocyte Esterase NEG NEG Urine WBC (Auto) 1-5 0-5 /hpf Urine RBC (Auto) 0-4 0-4 /hpf Urine Hyaline Casts (Auto) 0 0-5 /lpf Urine Epithelial Cells (Auto) 10-20 0-5 /lpf Urine Bacteria (Auto) NEG NEG Microbiology Results 02/07/18 Blood Culture, Received Pending 02/07/18 Blood Culture, Received Pending Diagnostic Radiology CHEST X-RAY: IMPRESSION: Worsening pulmonary edema with an increasing right pleural effusion. Right basal airspace opacities, likely representing associated compressive atelectasis. EKG A flutter with variable AV block Ventricular rate 161 QT/QTC 266/[address] abnormality, possible lateral subendocardial injury Impression Assessment and Plan ACUTE HYPOXEMIC RESPIRATORY FAILURE: -Presents with hypoxia orthopnea, 1 week history of dyspnea on exertion -Due to volume overload, acute CHF with history of diastolic dysfunction, patient also have interstitial lung disease with recent elevated pulmonary hypertension could be combination of acute right heart failure and/or diastolic decompensation -Given 40 mg IV Lasix in ER will be continued with 40 mg IV every 12 - Grimm catheter placed to monitor input output - BiPAP support for respiratory failure -Cardiology consulted -Patient is initially admitted to telemetry, transferred to ICU as no improvement of respiratory failure with IV diuretics/BiPAP -High risk of cardiopulmonary compromise given underlying complex medical history plan of care discussed with Cardiology and insulation manager ACUTE CHF WITH HISTORY OF DIASTOLIC FAILURE Echo on 02/03/2018: At outpatient [facility] Aortic valvular prosthesis stenosis is absent Aortic root and proximal ascending aorta are normal Qualitative LV ejection fraction 60-64% (normal) Moderate left ventricular diastolic dysfunction grade 2 septal motion is abnormal consistent with right ventricular pressure and volume overload Estimated pulmonary artery systolic pressure is 54 mm Hg Presents with volume overload/orthopnea Started with IV Lasix 40 mg twice daily patient's transfer to ICU Lasix drip started by insulation manager VALVULAR HEART DISEASE STATUS POST RECENT BIOPROSTHETIC TAVR History of severe symptomatic aortic stenosis/status post cardiac arrest in 2011 /ischemic cardiomyopathy prior ejection fraction 30% status post permanent pacemaker placement in 2011 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 pt was tx to ICU will need Hill[place] Zack catheter to assess rt heart pressure pt's refused to have any procedure done at [facility] , wanted pt to be transferred to [facility] concerned that pt can developed complication with central venous catheter placement with recent Aortic valve in place A FLUTTER/A. FIB hx of Afib /Aflutter s/p cardioversion in past has been on Sotalol /Pradaxa for anticoagulation -rapid ventricular rate with uncontrolled arrhythmia possible due to acute CHF / cardiac ischemia -pt started on Iv Amiodarone gtt -cardiology following closely SEVERE CORONARY ARTERY DISEASE -Diffuse coronary atherosclerosis disease dating back to 1995 with subsequent artery bypass graft in 2011, - repeat cardiac cath in November 2014 showed occlusion of all venous grafts except for saphenous vein graft to the posterior descending artery received drug -eluting stent to the left circumflex distal segment, drug-eluting stent to the vein graft to the posterior descending artery, and balloon angioplasty of the first obtuse marginal. -The preop cardiac cath in [place] prior to TAVR : showed luminal irregularity in the left main, left anterior descending artery coronary artery stent was patent with diffuse disease in the proximal segment, obtuse marginal of the circumflex had a 70% narrowing, the right coronary artery had 95% proximal and mid 100% stenosis reflecting chronic total occlusion. Vein graft to the right coronary artery was unable to be visualized. -Per patient's , patient did not had any anginal symptom-in the past 1 week , except for shortness of breath and dyspnea on exertion Patient will be continued with all cardiac meds Cardiology consulted appreciate input will need higher level of care/tertiary center for any cardiac intervention HISTORY OF PULMONARY INTERSTITIAL LUNG DISEASE/RADIATION PNEUMONITIS -Possibly leading to chronic pulmonary hypertension -Acute right heart failure leading to arrhythmia will benefit from central venous catheter/[place]-Zack to assess RV pressure/ oxygen saturation -Family prefers patient to be transferred to [facility] for any cardiac procedure or intervention CODE STATUS: Full code-discussed with patient and DVT PROPHYLAXIS: Subcu heparin DISPOSITION Due to complex cardiac issue issues will need to be transferred to tertiary care patient and family prefers transfer to [facility] as he had recent cardiac procedure less than 3 weeks ago Case discussed with on-call cardiology Dr. Niall Juan by insulation manager Dr. Torres and by myself Waiting for bed approval/and accepting physician Patient will be transferred to tertiary level care at [facility] for continuation of care as bed is available Level of Care Critical Care Advanced Directives Existing Living Will: Yes Existing Power of Pipe Setter: No Resuscitation Status FULL RESUSCITATION VTE Prophylaxis Risk Level: Moderate Given or contraindicated: Warfarin (Coumadin) Additional Copies To Yg Rainey M.D.
[2018-02-07] MEDS ORDERED: PROBIOTIC PRODUCT PO SCH (09:00)
[2018-02-07] MEDS ORDERED: DIGESTIVE ENZYMES PO SCH (09:00)
[2018-02-07] MEDS ORDERED: ASPIRIN 81 MG ECTAB PO SCH ×2 (09:00→10:00)
[2018-02-07] MEDS ORDERED: METOPROLOL TARTRATE 1 MG/ML VIAL ONE (09:21)
[2018-02-07] MEDS ORDERED: NURSING VERBAL MED ORDER ONE ×2 (09:30→22:15)
[2018-02-07] MEDS ORDERED: AMIODARONE 360MG / 200ML D5W ONE (09:39)
[2018-02-07] MEDS ORDERED: ICU PROTOCOL FOR HYPERGLYCEMIA PRN (10:00)
[2018-02-07] MEDS ORDERED: 0.2 MICRON FILTER SET 1 EA IV ONE (10:00)
[2018-02-07] MEDS ORDERED: AMIODARONE / D5W 100 ML IV ONE (10:00)
[2018-02-07] MEDS ORDERED: PANTOprazole SOD 40 MG TAB PO SCH (10:00)
[2018-02-07] MEDS ORDERED: METOPROLOL TARTRATE 25 MG TAB PO SCH ×2 (10:00→21:00)
[2018-02-07] MEDS ORDERED: AMIODARONE / D5W 200 ML IV SCH ×2 (10:09→16:09)
[2018-02-07] MEDS ORDERED: HEPARIN SOD 5000 UNIT/0.5 ML CARP SQ SCH (10:30)
--- NOTE | 2018-02-07 10:37 | Cardiology Consultation ---
Cardiology Consultation Date of Service Feb 07, 2018. 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 He has a history of Hodgkin's lymphoma which was treated in 1987 with chest radiation resulting in both pulmonary pneumonitis and fibrosis along with severe coronary artery disease. The patient was first diagnosed with coronary artery disease in 1995 and underwent coronary artery bypass surgery in 2011. He underwent a cardiac catheterization in 2014 that showed all his vein grafts to be closed except for the posterior descending artery. He has had multiple coronary interventions receiving coronary stents. He has a history of paroxysmal atrial fibrillation/flutter with tachybradycardia syndrome and while in [place] in 2011 he had a bradycardic arrest at which time he received a dual-chamber pacemaker. In December the patient underwent a MELQUIADES for severe aortic stenosis at [facility] in [place]. Immediately after the procedure he was doing well however over the past several days he has been feeling poorly. He was seen by Dr. Rainey last week and an echocardiogram was obtained that shows the prosthetic valve to be functioning appropriately. He has also normal left ventricular systolic function with an estimated left ventricular ejection fraction of 60-65%. He was noted to have severe pulmonary hypertension with septal motion consistent with right ventricular pressure/ volume overload. His estimated pulmonary artery systolic pressure was 54 mmHg. He has been subsequently admitted to the hospital and after admission he has developed atrial fibrillation with RVR as well as respiratory failure. He is currently on BiPAP. Most of the information is taken from the medical record. Allergies: Lactose intolerance and Bactrim Current Inpatient Medications Medications (Trade) Dose Ordered Sig/Veronica Route Start Time Stop Time Status Last Admin Dose Admin Acetaminophen (Tylenol Tab) 650 mg Q4H PRN PO 02/07/18 07:45 03/09/18 07:44 Al Hydrox/Mg Hydrox/Simethicone (Maalox Max Susp) 15 ml Q4H PRN PO 02/07/18 07:45 03/09/18 07:44 Magnesium Hydroxide (Milk Of Magnesia Susp) 30 ml Q12H PRN PO 02/07/18 07:45 03/09/18 07:44 Nitroglycerin (Nitrostat Tab) 0.4 mg UD PRN SL 02/07/18 07:45 03/09/18 07:44 Potassium Chloride (Klor-Con M10) 10 meq BID PO 02/07/18 21:00 03/09/18 20:59 Magnesium Oxide (Mag-Ox Tab) 400 mg QAM PO 02/08/18 09:00 03/10/18 08:59 Furosemide 40 mg/ Syringe 4 ml @ 4 mls/min BID17 IV 02/07/18 17:00 03/09/18 16:59 Allopurinol (Zyloprim Tab) 300 mg QPM PO 02/07/18 21:00 03/09/18 20:59 Aspirin (Ecotrin Tab) 81 mg QAM PO 02/07/18 10:00 03/09/18 09:59 Atorvastatin Calcium (Lipitor Tab) 20 mg QPM PO 02/07/18 21:00 03/09/18 20:59 Eszopiclone (Lunesta Tab) 3 mg HS PO 02/07/18 21:00 03/09/18 20:59 Guaifenesin (Mucinex Contr Rel Tab) 1,200 mg BID PO 02/07/18 21:00 03/09/18 20:59 Levothyroxine Sodium (Synthroid Tab) 175 mcg DAILYBB PO 02/08/18 06:00 03/10/18 05:59 Metoprolol Tartrate (Lopressor Tab) 25 mg QPM PO 02/07/18 21:00 03/09/18 20:59 Metoprolol Tartrate (Lopressor Tab) 50 mg QAM PO 02/07/18 10:00 03/09/18 09:59 Miscellaneous Information (Order Awaiting Action) 1 ea QS N/A 02/07/18 16:00 03/09/18 15:59 Pantoprazole Sodium (Protonix Tab) 40 mg QAM PO 02/07/18 10:00 03/09/18 09:59 Amiodarone HCL/ Dextrose 100 ml @ 600 mls/hr TODAY@1000 ONCE IV 02/07/18 10:00 02/07/18 10:09 02/07/18 09:52 600 MLS/HR Amiodarone HCL/ Dextrose 200 ml @ 33.3 mls/hr Q6H1M IV 02/07/18 10:09 02/07/18 16:09 Amiodarone HCL/ Dextrose 200 ml @ 16.7 mls/hr [id number] IV 02/07/18 16:09 03/09/18 16:08 Dabigatran (Pradaxa Cap) 150 mg BID PO 02/07/18 21:00 03/09/18 20:59 Sotalol HCl (Betapace Tab) 120 mg BID PO 02/07/18 21:00 03/09/18 20:59 Heparin Sodium (Porcine) (Heparin Sq 5000 Unit/0.5ml) 5,000 unit Q8H SQ 02/07/18 10:00 03/09/18 09:59 UNV Pantoprazole Sodium 40 mg/ Syringe 10 ml @ 5 mls/min DAILY IV 02/08/18 09:00 03/10/18 08:59 UNV Levalbuterol (Xopenex 1.25MG/ 0.5ML Neb) 1.25 mg Q4 INH 02/07/18 12:00 03/09/18 11:59 UNV Ipratropium [place] (Atrovent 0.02% 0.5MG/2.5ML Neb) 0.5 mg Q4 INH 02/07/18 12:00 03/09/18 11:59 UNV Miscellaneous Information (Icu Protocol For Hyperglycemia) 1 ea PRN PRN N/A 02/07/18 10:00 02/09/18 09:59 UNV Past medical history: 1. Diffuse coronary atherosclerosis dating back to 1995 with subsequent prior coronary bypass grafting in 2011 with all venous grafts due to underlying history of irradiation therapy to chest. Coronary artery disease possibly is a culminating factor of prior treatment with radiation for Hodgkin disease. 2. Repeat cardiac catheterization November 2014 demonstrating occlusion of all venous grafts except saphenous vein graft to the posterior descending artery. He received a drug-eluting stent to the left circumflex distal segment, drug-eluting stent to the vein graft to the posterior descending artery, and balloon angioplasty of the 1st obtuse marginal with diffuse coronary atherosclerosis noted. 3. Paroxysmal atrial fibrillation/flutter with tachy-olga syndrome status post dual chamber pacemaker insertion October 2012. It is a culmination of a complicated inpatient course secondary bradycardic arrest in [facility]. 4. History of remote Hodgkin disease status post chemotherapy and radiation therapy 1987. 5. Recurrent atrial arrhythmias, currently on Multaq and Toprol. 6. History of past significant bleeding issues on triple drug regimen with Xarelto, Effient, and aspirin. 7. Hemoptysis with pneumonia 01/2105, chronic radiation pneumonitis, diaphragmatic paresis 8. 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 10. Severe calcific aortic stenosis. 11. Status post transcutaneous aortic valve replacement on 01/15/2018 at [facility], receiving a 26 mm Shields HOLLY 3 aortic bioprosthesis. Social history: Patient lives with his . 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 Family medical history: Unobtainable Review of systems: Unobtainable Date Time Temp Pulse Resp B/P (MAP) Pulse Ox O2 Delivery O2 Flow Rate FiO2 02/07/18 09:54 147 24 105/74 (84) 98 02/07/18 09:46 154 31 97/66 (76) 95 02/07/18 09:45 138 34 95 02/07/18 09:31 148 86/52 (63) 02/07/18 09:29 150 152/97 02/07/18 08:55 160 36 96 02/07/18 08:41 146 35 94 02/07/18 08:31 121/71 02/07/18 08:26 108 30 94 02/07/18 08:11 102 41 92 02/07/18 08:01 100 36 137/71 93 BiPAP 02/07/18 08:01 136/71 02/07/18 07:59 102 02/07/18 07:56 101 35 92 02/07/18 07:46 145/75 02/07/18 07:41 103 41 96 02/07/18 07:38 99 97 6.0 02/07/18 07:36 102 24 133/68 95 BiPAP 02/07/18 07:31 133/68 02/07/18 07:28 96 BiPAP 02/07/18 07:26 99 29 95 02/07/18 07:21 101 96 02/07/18 07:16 105 96 02/07/18 07:11 103 94 02/07/18 07:06 106 95 02/07/18 07:01 101 42 159/74 95 02/07/18 06:56 102 28 96 02/07/18 06:51 102 36 97 02/07/18 06:46 93 35 96 02/07/18 06:41 94 31 96 02/07/18 06:36 96 32 96 02/07/18 06:31 96 32 95 02/07/18 06:26 95 31 93 02/07/18 06:21 96 45 93 02/07/18 06:16 93 42 96 02/07/18 06:11 145/84 02/07/18 06:08 145/84 02/07/18 06:05 90 26 99 Nasal Cannula 6.0 02/07/18 05:35 94 24 97 Nasal Cannula 6.0 02/07/18 05:25 91 02/07/18 05:24 93 Nasal Cannula 6.0 02/07/18 05:23 93 Nasal Cannula 6.0 02/07/18 05:14 93 Nasal Cannula 6.0 02/07/18 05:14 36.5 96 20 151/71 93 Nasal Cannula 6.0 02/07/18 05:11 151/71 General Appearance: Currently on BiPAP. Head: Normocephalic Atraumatic. Eyes: PERRLA, EOMI, conjunctiva and sclera clear Neck: Supple. No carotid bruits noted. No JVD. No HJD. Respiratory: Breath sounds are equal bilaterally. Cardiovascular: Irregular rhythm: There is a intermittent systolic murmur along the left sternal border Abdomen: Abdomen is distended. Extremities: No edema, no clubbing or cyanosis. distal pulses 2/4 bilaterally. Neuro: No focal deficits. Psychiatric: Normal affect. Last 24 Hours Test 02/07/18 05:13 02/07/18 05:15 02/07/18 09:30 02/07/18 09:40 White Blood Count 10.98 K/uL Red Blood Count 4.02 M/uL Hemoglobin 10.9 g/dL Hematocrit 34.2 % Mean Corpuscular Volume 85.1 fL Mean Corpuscular Hemoglobin 27.1 pg Mean Corpuscular Hemoglobin Concent 31.9 g/dl Platelet Count 103 K/uL Neutrophils (%) (Auto) 89.8 % Lymphocytes (%) (Auto) 1.4 % Monocytes (%) (Auto) 8.1 % Eosinophils (%) (Auto) 0.2 % Basophils (%) (Auto) 0.2 % Neutrophils # (Auto) 9.87 K/uL Lymphocytes # (Auto) 0.15 K/uL Monocytes # (Auto) 0.89 K/uL Eosinophils # (Auto) 0.02 K/uL Basophils # (Auto) 0.02 K/uL RDW Standard Deviation 58.8 fL RDW Coefficient of Variation 18.7 % Immature Granulocyte % (Auto) 0.3 % Immature Granulocyte # (Auto) 0.03 K/uL Platelet Estimate DECREASED Red Blood Cell Morphology Unremarkable Prothrombin Time 13.8 SECONDS Prothromb Time International Ratio 1.3 Activated Partial Thromboplast Time 36.5 SECONDS Partial Thromboplastin Ratio 1.4 D-Dimer 1080 ug/L FEU Sodium Level 131 mmol/L Potassium Level 4.4 mmol/L Chloride Level 98 mmol/L Carbon Dioxide Level 24 mmol/L Anion Gap 9.0 mmol/L Blood Urea Nitrogen 32 mg/dl Creatinine 1.12 mg/dl Est Creatinine Clear Calc Drug Dose 69.3 ml/min Estimated GFR () 75.1 Estimated GFR (Non- 64.8 BUN/Creatinine Ratio 28.4 Random Glucose 173 mg/dl Calcium Level 8.7 mg/dl Magnesium Level 1.8 mg/dl Total Bilirubin 1.3 mg/dl Direct Bilirubin 0.5 mg/dl Aspartate Amino Transf (AST/SGOT) 28 U/L Alanine Aminotransferase (ALT/SGPT) 24 U/L Alkaline Phosphatase 113 U/L Total Creatine Kinase 110 U/L Troponin I 0.020 ng/ml Pro-B-Type Natriuretic Peptide 1860 pg/ml Total Protein 8.0 gm/dl Albumin 3.3 gm/dl Lyme Disease IgG Antibody NEG Lyme Disease IgM Antibody NEG Urine Color YELLOW YELLOW Urine Appearance CLEAR CLEAR Urine pH 5.0 5.0 Urine Specific [place] 1.023 1.012 Urine Protein 2+ NEG Urine Glucose (UA) NEG NEG Urine Ketones NEG NEG Urine Occult Blood NEG 1+ Urine Nitrite NEG NEG Urine Bilirubin NEG NEG Urine Urobilinogen NEG NEG Urine Leukocyte Esterase NEG NEG Urine WBC (Auto) 1-5 /hpf 0 /hpf Urine RBC (Auto) 0-4 /hpf 0-4 /hpf Urine Hyaline Casts (Auto) 0 /lpf 1-5 /lpf Urine Epithelial Cells (Auto) 10-20 /lpf 5-10 /lpf Urine Bacteria (Auto) NEG NEG Bedside Glucose 167 mg/dl Test 02/07/18 09:45 02/07/18 10:01 Blood Gas Sample Site L Radial Bedside Blood Gas pH (LAB) 7.49 Bedside Blood Gas pCO2 (LAB) 35 mmHg Bedside Blood Gas pO2 (LAB) 69 mmHg Bedside Blood Gas HCO3 (LAB) 27 meq/L Bedside Blood Gas Total CO2 28 mEq/l Bedside Blood Gas Base Excess (LAB) 4.0 meq/L Bedside Blood Gas O2 Saturation 95.0 % Pillo Test Pass Oxygen Delivery Device BIPAP Bedside Oxygen Rate (breaths/min) 34 Bedside FiO2 0 % Blood Gas IPAP 10 Impression: This is a 72-year-old male patient with multiple complex medical problems. Most of these cardiopulmonary problems are related to delayed response due to radiation given in 1987 for Hodgkin's disease. He currently has pulmonary pneumonitis and fibrosis of the lungs with severe pulmonary hypertension. He also developed early atherosclerotic vascular disease and has undergone coronary artery bypass surgery with closure of most of the vein grafts and multiple coronary interventions. He recently underwent a MELQUIADES for aortic stenosis. He has a history of atrial arrhythmias. He has been maintained on 120 of sotalol twice daily. He has been carefully anticoagulated due to previous history of hemoptysis, with Pradaxa. He was admitted to the hospital with progressive dyspnea and after admission developed respiratory failure with atrial fibrillation and RVR. Recommendations: I believe the patient should be transferred to the ICU. He is currently receiving BiPAP. He has high heart rates which I believe are compromising his stability and although amiodarone is not a good drug for him long-term I think in the short-term until we stabilize his heart rhythm we should bolus him and start an IV infusion. I think he would benefit from a Ullin -Zack catheter after arrival to the ICU. He is difficult to evaluate due to his severe pulmonary hypertension, pulmonary fibrosis and recent MELQUIADES. I do not believe that we are dealing necessarily with left-sided heart failure. I would recommend pulmonary consultation. The Ullin-Zack catheter should help us manage his diuretics. Further evaluation and treatment following the above.
[2018-02-07] MEDS ORDERED: FUROSEMIDE INJ 100 MG in DEXTROSE 5% 100ML 90 ML IV SCH (11:00)
[2018-02-07] MEDS: LEVALBUTEROL 1.25MG/0.5ML NEB INH SCH ×3 (11:21→20:25)
[2018-02-07] MEDS: IPRATROPIUM BROMIDE NEB SOLN 0.02% 2.5 ML VIAL INH SCH ×3 (11:21→20:25)
[2018-02-07 11:28] LABS: INFLUENZA A PCR Neg for Influ A (NEG); INFLUENZA B PCR Neg for Influ B (NEG)
[2018-02-07 14:25] LABS: CALCIUM 8.6 mg/dl (8.5-10.1); CREATININE 1.34 mg/dl (0.60-1.40); POTASSIUM 3.8 mmol/L (3.5-5.1)
--- NOTE | 2018-02-07 15:11 | Critical Care Consultation ---
Critical Care Consultation Date of Consultation: Feb 07, 2018. Attending Physician: Nicolette Myrick M.D. Reason for Consultation: Acute respiratory failure, rapid A. fib. History of Present Illness Dear Dr. Myrick: Thank you for your kind referral of Mr. Norton the critical care service. This is a 72-year-old gentleman with extensive cardiac history in the past including coronary artery disease status post CABG in 2011, history of PCI in 2014, showing occluded grafts, history of recurrent A. fib, bradycardia with placement of a pacemaker done in [facility], [place], history of aortic stenosis status post TAVR done at [facility], the patient presented to the hospital after he has been having increasing shortness of breath with near syncopal episode, the patient was found to be in rapid A. fib. The patient was already on multiple modalities including sotalol, metoprolol. According to the was at the bedside, the patient could not give me any history, the mentioned that in the past sotalol resulted in cardioversion on him. The patient has been maintained on Pradaxa by his rn psych Dr. Rainey. The patient was evaluated by Dr. Ontiveros who was covering for Dr. Rainey. And due to the patient being in CHF and history of radiation pneumonitis for Hodgkin lymphoma that was treated over 30 years ago according to the , it was difficult to assess his fluid status. The patient was given a dose of Lasix and transferred to the ICU for possible placement of PA catheter or central line was CVP for fluid management. In the ICU, the patient appeared very lethargic but open his eyes, is mainly Tajik-speaking, he did not have information to give me at this point except for his who is very attentive and she has been his caregiver throughout. She mentioned that he did not have any chest pain. Although no orthopnea was reported and after he had his aortic valve replacement with a transcatheter procedure, the patient went on driving 2 days afterward. The procedure is only 3 weeks ago. The patient for the past few days he has been having increasing shortness of breath as well as poorly controlled A. fib. The patient was started on amiodarone drip and transferred to the ICU. When I discussed the case with the , she did not want placement of PA catheter until I consulted with his cardiology team at [facility] in [place]. In that regard, I have spoken to Dr. Juan who is covering for Dr. Saenz who placed the aortic valve transcatheter . He did not commented on the plan and agreed with our judgment and plan and placement invasive monitoring device. However he agreed also to take the patient at [facility] if needed. Dr. Myrick and I spoke to the and she would like him to be transferred to [facility]. She declined transfer to [place] which is our next tertiary care center. Transferring to [facility] was initiated. And due to the patient condition, I have performed a bedside ultrasound to the right side of the chest cavity which showed paralyzed right hemidiaphragm but there is significant pleural effusion. The findings are compatible with a chest x-ray on admission. The patient in my opinion is in pulmonary edema with CHF exacerbation. I have started the patient on Lasix drip awaiting acceptance and bed availability at [facility]. Family History No pertinent family history Social History Smoking Status: Never Smoker Marital Status: Housing Status: lives with significant other Occupation Status: unemployed Allergies Coded Allergies: Sulfamethoxazole w/Trimethoprim (Verified Adverse Reaction, Mild, BAD DIARRHEA, 02/07/18) Lactose Intolerance (Verified Adverse Reaction, Unknown, BLOATING/FULLNESS , 02/07/18) CONTROLLED W/ LACTASE Home Medications Scheduled Allopurinol (Zyloprim), 300 MG PO QPM Aspirin Enteric Coated (Ecotrin Or Generic), 81 MG PO QAM Atorvastatin (Lipitor), 20 MG PO QPM Dabigatran Etexilate Mesylate (Pradaxa), 1 CAP PO BID Digestive Enzymes (Papaya Enzyme), 1 TAB PO QAM Eplerenone (Eplerenone), 25 MG PO QAM Eszopiclone (Lunesta), 3 MG PO HS Furosemide (Lasix), 2 TABS PO DAILY Guaifenesin Ext Rel (Mucinex Ext Rel), 2 TABS PO BID Levothyroxine Sodium (Synthroid), 175 MCG PO QAM Magnesium Oxide (Mag-Ox), 400 MG PO DAILY Metformin Hcl Er (Glucophage Er), 500 MG PO DAILY Metoprolol Tartrate (Lopressor) (Lopressor), 1 TAB PO QPM Metoprolol Tartrate (Lopressor) (Lopressor), 2 TABS PO QAM Potassium Chloride (Micro-K Ext Rel), 10 MEQ PO QPM Probiotic Product (Probiotic), 2 CAP PO QAM Rabeprazole Sodium (Aciphex), 20 MG PO QAM Sotalol Hcl (Sotalol Hcl), 1 TAB PO BID Scheduled PRN Lactase (Lactase Fast Acting), 1 TAB PO WM PRN for DAIRY INTAKE Nitroglycerin (Nitrostat), 0.4 MG UT UD PRN for Chest Pain Current Inpatient Medications Current Inpatient Medications Medications (Trade) Dose Ordered Sig/Veronica Route Start Time Stop Time Status Last Admin Dose Admin Acetaminophen (Tylenol Tab) 650 mg Q4H PRN PO 02/07/18 07:45 03/09/18 07:44 Al Hydrox/Mg Hydrox/Simethicone (Maalox Max Susp) 15 ml Q4H PRN PO 02/07/18 07:45 03/09/18 07:44 Magnesium Hydroxide (Milk Of Magnesia Susp) 30 ml Q12H PRN PO 02/07/18 07:45 03/09/18 07:44 Nitroglycerin (Nitrostat Tab) 0.4 mg UD PRN SL 02/07/18 07:45 03/09/18 07:44 Potassium Chloride (Klor-Con M10) 10 meq BID PO 02/07/18 21:00 03/09/18 20:59 Magnesium Oxide (Mag-Ox Tab) 400 mg QAM PO 02/08/18 09:00 03/10/18 08:59 Aspirin (Ecotrin Tab) 81 mg QAM PO 02/07/18 10:00 03/09/18 09:59 02/07/18 12:47 81 MG Atorvastatin Calcium (Lipitor Tab) 20 mg QPM PO 02/07/18 21:00 03/09/18 20:59 Levothyroxine Sodium (Synthroid Tab) 175 mcg DAILYBB PO 02/08/18 06:00 03/10/18 05:59 Metoprolol Tartrate (Lopressor Tab) 25 mg QPM PO 02/07/18 21:00 03/09/18 20:59 Metoprolol Tartrate (Lopressor Tab) 50 mg QAM PO 02/07/18 10:00 03/09/18 09:59 02/07/18 12:47 50 MG Miscellaneous Information (Order Awaiting Action) 1 ea QS N/A 02/07/18 16:00 03/09/18 15:59 Amiodarone HCL/ Dextrose 200 ml @ 33.3 mls/hr Q6H1M IV 02/07/18 10:09 02/07/18 16:09 Amiodarone HCL/ Dextrose 200 ml @ 16.7 mls/hr [id number] IV 02/07/18 16:09 03/09/18 16:08 Sotalol HCl (Betapace Tab) 120 mg BID PO 02/07/18 21:00 03/09/18 20:59 Heparin Sodium (Porcine) (Heparin Sq 5000 Unit/0.5ml) 5,000 unit Q8H SQ 02/07/18 10:30 03/09/18 10:29 02/07/18 11:16 5,000 UNIT Pantoprazole Sodium 40 mg/ Syringe 10 ml @ 5 mls/min DAILY@1100 IV 02/08/18 11:00 03/10/18 10:59 Levalbuterol (Xopenex 1.25MG/ 0.5ML Neb) 1.25 mg Q4R INH 02/07/18 12:00 03/09/18 11:59 02/07/18 11:21 1.25 MG Ipratropium [place] (Atrovent 0.02% 0.5MG/2.5ML Neb) 0.5 mg Q4R INH 02/07/18 12:00 03/09/18 11:59 02/07/18 11:21 0.5 MG Miscellaneous Information (Icu Protocol For Hyperglycemia) 1 ea PRN PRN N/A 02/07/18 10:00 02/09/18 09:59 Furosemide 100 mg/ Dextrose 100 ml @ 5 mls/hr Q20H IV 02/07/18 11:00 03/09/18 10:59 02/07/18 11:16 5 MLS/HR Review of Systems Not obtainable, information from the was very limited however the patient did not have any chest pain, no nausea or vomiting reported, increased abdominal girth and edema in the periphery also was noted. There is no dizziness or near syncopal episode. Physical Exam Date Time Temp Pulse Resp B/P (MAP) Pulse Ox O2 Delivery O2 Flow Rate FiO2 02/07/18 14:00 110 18 88/65 (73) 96 Nasal Cannula 6.0 4/8/18 12:00 96 Oxymask 4.0 18 12:00 36.9 132 18 94/46 (62) 97 Oxymask 4.0 02/07/18 11:26 112 18 97 Nasal Cannula 4.0 02/07/18 11:00 36.9 113 18 89/54 (66) 96 Oxymask 4.0 02/07/18 10:15 36.9 131 22 89/56 (67) 100 7.0 02/07/18 09:54 147 24 105/74 (84) 98 02/07/18 09:46 154 31 97/66 (76) 95 02/07/18 09:45 138 34 95 02/07/18 09:31 148 86/52 (63) 02/07/18 09:29 150 152/97 02/07/18 08:55 160 36 96 02/07/18 08:41 146 35 94 02/07/18 08:31 121/71 02/07/18 08:26 108 30 94 02/07/18 08:11 102 41 92 02/07/18 08:01 100 36 137/71 93 BiPAP 02/07/18 08:01 136/71 02/07/18 07:59 102 02/07/18 07:56 101 35 92 02/07/18 07:46 145/75 02/07/18 07:41 103 41 96 02/07/18 07:38 99 97 6.0 02/07/18 07:36 102 24 133/68 95 BiPAP 02/07/18 07:31 133/68 02/07/18 07:28 96 BiPAP 02/07/18 07:26 99 29 95 18 07:21 101 96 02/07/18 07:16 105 96 18 07:11 103 94 02/07/18 07:06 106 95 18 07:01 101 42 159/74 95 02/07/18 06:56 102 28 96 18 06:51 102 36 97 02/07/18 06:46 93 35 96 02/07/18 06:41 94 31 96 02/07/18 06:36 96 32 96 02/07/18 06:31 96 32 95 02/07/18 06:26 95 31 93 02/07/18 06:21 96 45 93 02/07/18 06:16 93 42 96 02/07/18 06:11 145/84 02/07/18 06:08 145/84 02/07/18 06:05 90 26 99 Nasal Cannula 6.0 02/07/18 05:35 94 24 97 Nasal Cannula 6.0 02/07/18 05:25 91 02/07/18 05:24 93 Nasal Cannula 6.0 02/07/18 05:23 93 Nasal Cannula 6.0 02/07/18 05:14 93 Nasal Cannula 6.0 02/07/18 05:14 36.5 96 20 151/71 93 Nasal Cannula 6.0 02/07/18 05:11 151/71 General Appearance: mild distress Eyes: EOMI ENT: normal throat exam Neck: trachea midline Respiratory: rales Cardiovasular: normal S1S2, no M/G/R, no murmur Abdomen: non tender, no guarding, no organomegaly Lower Extremities: edema Neuro: alert Psychiatric: flat affect Laboratory Results Last 24 Hours Test 02/07/18 05:13 02/07/18 05:15 02/07/18 09:30 02/07/18 09:40 White Blood Count 10.98 K/uL Red Blood Count 4.02 M/uL Hemoglobin 10.9 g/dL Hematocrit 34.2 % Mean Corpuscular Volume 85.1 fL Mean Corpuscular Hemoglobin 27.1 pg Mean Corpuscular Hemoglobin Concent 31.9 g/dl Platelet Count 103 K/uL Neutrophils (%) (Auto) 89.8 % Lymphocytes (%) (Auto) 1.4 % Monocytes (%) (Auto) 8.1 % Eosinophils (%) (Auto) 0.2 % Basophils (%) (Auto) 0.2 % Neutrophils # (Auto) 9.87 K/uL Lymphocytes # (Auto) 0.15 K/uL Monocytes # (Auto) 0.89 K/uL Eosinophils # (Auto) 0.02 K/uL Basophils # (Auto) 0.02 K/uL RDW Standard Deviation 58.8 fL RDW Coefficient of Variation 18.7 % Immature Granulocyte % (Auto) 0.3 % Immature Granulocyte # (Auto) 0.03 K/uL Platelet Estimate DECREASED Red Blood Cell Morphology Unremarkable Prothrombin Time 13.8 SECONDS Prothromb Time International Ratio 1.3 Activated Partial Thromboplast Time 36.5 SECONDS Partial Thromboplastin Ratio 1.4 D-Dimer 1080 ug/L FEU Sodium Level 131 mmol/L Potassium Level 4.4 mmol/L Chloride Level 98 mmol/L Carbon Dioxide Level 24 mmol/L Anion Gap 9.0 mmol/L Blood Urea Nitrogen 32 mg/dl Creatinine 1.12 mg/dl Est Creatinine Clear Calc Drug Dose 69.3 ml/min Estimated GFR () 75.1 Estimated GFR (Non- 64.8 BUN/Creatinine Ratio 28.4 Random Glucose 173 mg/dl Calcium Level 8.7 mg/dl Magnesium Level 1.8 mg/dl Total Bilirubin 1.3 mg/dl Direct Bilirubin 0.5 mg/dl Aspartate Amino Transf (AST/SGOT) 28 U/L Alanine Aminotransferase (ALT/SGPT) 24 U/L Alkaline Phosphatase 113 U/L Total Creatine Kinase 110 U/L Troponin I 0.020 ng/ml Pro-B-Type Natriuretic Peptide 1860 pg/ml Total Protein 8.0 gm/dl Albumin 3.3 gm/dl Lyme Disease IgG Antibody NEG Lyme Disease IgM Antibody NEG Urine Color YELLOW YELLOW Urine Appearance CLEAR CLEAR Urine pH 5.0 5.0 Urine Specific [place] 1.023 1.012 Urine Protein 2+ NEG Urine Glucose (UA) NEG NEG Urine Ketones NEG NEG Urine Occult Blood NEG 1+ Urine Nitrite NEG NEG Urine Bilirubin NEG NEG Urine Urobilinogen NEG NEG Urine Leukocyte Esterase NEG NEG Urine WBC (Auto) 1-5 /hpf 0 /hpf Urine RBC (Auto) 0-4 /hpf 0-4 /hpf Urine Hyaline Casts (Auto) 0 /lpf 1-5 /lpf Urine Epithelial Cells (Auto) 10-20 /lpf 5-10 /lpf Urine Bacteria (Auto) NEG NEG Bedside Glucose 167 mg/dl Test 02/07/18 09:45 02/07/18 10:01 02/07/18 11:50 02/07/18 13:39 Influenza Type A (RT-PCR) Neg for Influ A Influenza Type B (RT-PCR) Neg for Influ B Blood Gas Sample Site L Radial Bedside Blood Gas pH (LAB) 7.49 Bedside Blood Gas pCO2 (LAB) 35 mmHg Bedside Blood Gas pO2 (LAB) 69 mmHg Bedside Blood Gas HCO3 (LAB) 27 meq/L Bedside Blood Gas Total CO2 28 mEq/l Bedside Blood Gas Base Excess (LAB) 4.0 meq/L Bedside Blood Gas O2 Saturation 95.0 % Pillo Test Pass Oxygen Delivery Device BIPAP Bedside Oxygen Rate (breaths/min) 34 Bedside FiO2 0 % Blood Gas IPAP 10 Bedside Glucose 168 mg/dl Sodium Level 134 mmol/L Potassium Level 3.8 mmol/L Chloride Level 97 mmol/L Carbon Dioxide Level 27 mmol/L Anion Gap 10.0 mmol/L Blood Urea Nitrogen 29 mg/dl Creatinine 1.34 mg/dl Est Creatinine Clear Calc Drug Dose 58.0 ml/min Estimated GFR () 60.5 Estimated GFR (Non- 52.2 BUN/Creatinine Ratio 21.6 Random Glucose 173 mg/dl Calcium Level 8.6 mg/dl Troponin I 0.138 ng/ml Diagnostic Results Bedside ultrasound was done which revealed right-sided pleural effusion. Chest x-ray showed cardiomegaly with pulmonary vascular congestion. Pacemaker right subclavian and sternotomy wires, the patient has also right-sided pleural effusion with elevated hemidiaphragm. Assessment & Plan 1. CHF exacerbation. Etiology is likely related to the rapid A. fib. 2. Extensive history of coronary artery disease status post CABG, PCI in 2014 with occluded grafts. He does have 2 stents placed. 3. Aortic stenosis status post TAVR. 4. 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 5. Paroxysmal A. fib, currently with RVR on amiodarone drip. Plan: 1. Per the 's request, will transfer the patient to [facility]. Appreciate Dr. Myrick input in that regard. 2. Lasix drip at 5 mg IV per hour. Monitor for negative balance on the output. 3. The patient's declined CVP, central line and PA catheter at this point , her concerns it might interfere with other instruments that he had already been installed in his heart. 4. Continue Pradaxa. 5. Oxygen via nasal cannula. 6. BiPAP if needed. 7. Declined thoracentesis by the for the right pleural effusion. 8. [facility] Dr. Ontiveros, Dr. Myrick, appreciate all inputs. We will monitor in the ICU until the patient is transferred via ambulance. Case discussed with the staff and details. Critical care time spent with the patient was 60 minutes.
[2018-02-07] MEDS ORDERED: DEXTROSE 50% 50 ML SYR IV PRN (16:45)
[2018-02-07] MEDS ORDERED: GLUCOSE 10 TABS/TUBE PO PRN (16:45)
[2018-02-07] MEDS ORDERED: GLUCOSE 40% GEL 15 GM TUBE PO PRN (16:45)
[2018-02-07] MEDS ORDERED: GLUCAGON FOR INJ 1 MG VIAL SQ PRN (16:45)
[2018-02-07] MEDS ORDERED: FUROSEMIDE INJ 40 MG in SYRINGE 0 ML IV SCH (17:00)
[2018-02-07] MEDS ORDERED: DABIGATRAN ELEXILATE 75 MG CAP PO ONE (17:19)
[2018-02-07] MEDS ORDERED: SOTALOL HCL 80 MG TAB PO ONE (17:30)
--- NOTE | 2018-02-07 17:50 | Discharge Instructions ---
Discharge Instructions Date of Service Feb 07, 2018. Admission Reason for Admission: CHF Discharge Discharge Diagnosis / Problem: AFIB /FLUTTER /ACUTE CHF WITH RT HEART FAILURE / DIASTOLIC DYSFUNCTION / Discharge Goals Goal(s): Increase independence, Improve disease control, Diagnostic testing, Therapeutic intervention Activity Recommendations Activity Limitations: as noted below ( TOLERATED ) . Instructions / Follow-Up Instructions / Follow-Up PATIENT BEING TRANSFERRED TO [facility] ACCEPTING PHYSICIAN DR ROSE FRY MD -CARDIOLOGY [facility] Call your Primary Care doctor if any of the following symptoms or problems start or get worse: * Shortness of breath or difficulty breathing * Wake up at night short of breath * Chest pain * Cough * Swelling of your hands, feet, or legs * More fatigued or tired with your normal activity * Palpitations - sudden fast heart beats WEIGHT * Weigh yourself every morning after using the bathroom. * Use the same scale. * Wear the same amount of clothing. * Write your weight down on a chart. * Call your Primary Care doctor if you gain more than 2-3 pounds in 1-2 days. MEDICATIONS * Use this discharge instruction sheet for medication instructions. * Take your medications at the time your doctor ordered. * Do not skip a dose of your medicines. * If you miss a dose of medicine, take it as soon as possible, but DO NOT DOUBLE A DOSE. * Read your medicine information when you get home. * Know all of the side effects of your medicine. If in doubt, ask your pharmacist * Call your Primary Care doctor's office if you have any side effects. * Be sure all of your doctors know what medicine and herbs you take (including cold, flu, and herbal medicine). Take the following with you to your follow-up doctor appointments: * Weight Chart * Medication List * List of questions Do not drink excessive alcohol, beer or wine. Current Hospital Diet Patient's current hospital diet: Clear Liquid Diet, Diabetes Type 2 Diet Discharge Diet Recommended Diet: Low Sodium Diet (2gm Na), Diabetes Type 2 Diet Pending Studies Studies pending at discharge: no Medical Emergencies . Who to Call and When: Call 911 or go to the Emergency Room if: * If at any time you feel your situation is an emergency * You have tightness or pain in your chest that does not go away with rest or Nitroglycerin * You are very short of breath even with rest . Non-Emergent Contact Non-Emergency issues call your: Primary Care Provider . . "Provider Documentation" section prepared by Nicolette Myrick. .
[2018-02-07] MEDS ORDERED: PIPERACILLIN/TAZOBACTAM 3.375 GM/100ML D5W IV STA (18:07)
[2018-02-07] MEDS ORDERED: PIPERACILL/TAZOBAC CONSULT ACTIVE PRN (18:15)
[2018-02-07] MEDS ORDERED: VANCOMYCIN CONSULT ACTIVE PRN ×2 (18:15)
[2018-02-07] MEDS ORDERED: PIPERACILL/TAZOBAC IV 4.5 GM in NSS 100 ML IV ONE (18:45)
[2018-02-07] MEDS ORDERED: VANCOMYCIN IV 2,500 MG in SODIUM CHLORIDE 0.9% 500ML 500 ML IV ONE (19:00)
[2018-02-07] MEDS ORDERED: AMIODARONE (19:01)
--- NOTE | 2018-02-07 19:17 | Progress Note ---
Progress Note Date of Service Feb 07, 2018. Progress Note Patient is accepted at [facility] accepting physician is Dr. Niall Juan MD-cardiology patient will Go to the coronary care unit No bed available at [facility] yet, 2 sets of blood culture-positive for gram-positive cocci Report of fever chills at home Presented with mild leukocytosis WBC 10. Mild thrombocytopenia platelet count of 103 outpatient lab On 02/04/2018 was normal Result of blood culture updated to towel inspector Dr. Torres and cardiology Dr. nOtiveros Patient is started with empiric antibiotic with IV Zosyn/IV vancomycin Ordered for urine culture Repeat blood culture in the morning if patient is not transferred ID eval requested report of positive blood culture updated to Dr. Niall Juan at [facility]-in agreement with antibiotic treatment with Zosyn and vancomycin pt is continued with IV Amiodarone resumed Sotalol 120 mg BID and Pradaxa was on Pradaxa 110 mg BID for hx of epistaxis pt is given 150 mg Pradaxa x 1 now will bring 110 mg dose Pradaxa form home tomorrow all discharge paper works /chart copy done pt will be transferred to [facility] when bed and transport available
[2018-02-07] MEDS ORDERED: OXYMETAZOLINE HCL 0.05% NA SPR 15 ML BTL ONE (20:45)
[2018-02-07] MEDS ORDERED: INSULIN ASPART 100 UNITS/ML 3 ML PEN SC SCH (21:00)
[2018-02-07] MEDS ORDERED: POTASSIUM CHLORIDE 10 MEQ TABCR PO SCH (21:00)
[2018-02-07] MEDS ORDERED: GUAIFENESIN 600 MG TABCR PO SCH (21:00)
[2018-02-07] MEDS ORDERED: ALLOPURINOL 300 MG TAB PO SCH (21:00)
[2018-02-07] MEDS ORDERED: ATORVASTATIN 20 MG TAB PO SCH (21:00)
[2018-02-07] MEDS ORDERED: DABIGATRAN ELEXILATE 75 MG CAP PO SCH ×3 (21:00)
[2018-02-07] MEDS ORDERED: SOTALOL HCL 80 MG TAB PO SCH ×3 (21:00)
[2018-02-07] MEDS ORDERED: ESZOPICLONE 3 MG TAB PO SCH (21:00)
[2018-02-07] MEDS ORDERED: RAPID SEQUENCE INDUCTION BAG ONE (21:07)
[2018-02-07] MEDS ORDERED: FENTANYL CITRATE INJ 50 MCG/1 ML 2 ML VIAL ONE (21:29)
[2018-02-07] MEDS ORDERED: FENTANYL CITRATE 1250MCG/250ML NSS ONE (21:29)
--- NOTE | 2018-02-07 21:33 | Pharmacy Progress Note ---
Pharmacy Abx Initial Consult Date of Service Feb 07, 2018. Pharmacy Dosing Scope Date of Consult: 02/07/18 Consultation requested by: Dr. Myrick Pharmacy is consulted to initiate Vancomycin IV dosing therapy, order appropriate labs and adjust drug dose/frequency. Subjective The patient is a 72 year old male admitted on Feb 07, 2018 at 07:50. Objective Height (Feet): 5 Height (Inches): 6.00 Weight (Kilograms): 113.000 Vital Signs (Past 12Hrs) Vital Signs Past 12 Hours Date Time Temp Pulse Resp B/P (MAP) Pulse Ox O2 Delivery O2 Flow Rate FiO2 02/07/18 20:25 104 22 100 Nasal Cannula 6.0 02/07/18 18:25 37.2 120 20 101/62 (75) 96 Nasal Cannula 6.0 02/07/18 16:00 110 16 95/58 (70) 94 Nasal Cannula 6.0 02/07/18 16:00 Nasal Cannula 6.0 02/07/18 15:39 109 22 93 Nasal Cannula 6.0 02/07/18 14:00 110 18 88/65 (73) 96 Nasal Cannula 6.0 02/07/18 12:00 96 Oxymask 4.0 02/07/18 12:00 36.9 132 18 94/46 (62) 97 Oxymask 4.0 02/07/18 11:26 112 18 97 Nasal Cannula 4.0 02/07/18 11:00 36.9 113 18 89/54 (66) 96 Oxymask 4.0 02/07/18 10:15 36.9 131 22 89/56 (67) 100 7.0 02/07/18 09:54 147 24 105/74 (84) 98 02/07/18 09:46 154 31 97/66 (76) 95 02/07/18 09:45 138 34 95 02/07/18 09:31 148 86/52 (63) 02/07/18 09:29 150 152/97 Lab Results (24Hrs) Laboratory Tests (24 Hours) Test 02/07/18 05:13 White Blood Count 10.98 K/uL (4.8-10.8) H Red Blood Count 4.02 M/uL (4.7-6.1) L Hemoglobin 10.9 g/dL (14.0-18.0) L Hematocrit 34.2 % (42-52) L Mean Corpuscular Volume 85.1 fL (80-100) Mean Corpuscular Hemoglobin 27.1 pg (25-34) Mean Corpuscular Hemoglobin Concent 31.9 g/dl (32-36) L Platelet Count 103 K/uL (130-400) L Neutrophils (%) (Auto) 89.8 % Lymphocytes (%) (Auto) 1.4 % Monocytes (%) (Auto) 8.1 % Eosinophils (%) (Auto) 0.2 % Basophils (%) (Auto) 0.2 % Neutrophils # (Auto) 9.87 K/uL (1.4-6.5) H Lymphocytes # (Auto) 0.15 K/uL (1.2-3.4) L Monocytes # (Auto) 0.89 K/uL (0.11-0.59) H Eosinophils # (Auto) 0.02 K/uL (0-0.5) Basophils # (Auto) 0.02 K/uL (0-0.2) Total Creatine Kinase 110 U/L (39-308) Micro Results Date/Time Source Procedure Growth Status 02/07/18 06:19 Blood Blood Culture - Preliminary Gram Positive Cocci Resulted 02/07/18 06:13 Blood Blood Culture - Preliminary Gram Positive Cocci Resulted 02/07/18 10:15 Nasal MRSA DNA Surveillance Screen - Final Specimen Negative for MRSA by DNA Probe Complete Assessment & Plan Assessment 72 year old male with blood cultures x 2 positive for G+ cocci. Plan Vancomycin for treatment of bacteremia. Vancomycin IV * Loading dose: Vancomycin 2500 mg (22 mg/kg) x1 dose given at 1923. * Maintenance dose: Vancomycin 1750 mg IV (15.5 mg/kg) every 18 hours * Goal trough level for bacteremia: 15 to 20 mcg/mL * Trough level ordered for 02/09/18 before dose at 2000. * Possibility of drug accumulation in this patient with a BMI > 40.2 kg/m2. Will check level before 3rd maintenance dose. Pharmacy will continue to follow and will adjust dose/frequency as necessary. Thank you.
[2018-02-07] MEDS ORDERED: LIDOCAINE HCL 1% 20 ML VIAL ONE (21:50)
--- NOTE | 2018-02-07 22:00 | Procedure Note ---
Procedure Note Date of Service Feb 07, 2018. Procedure Note Patient is a 72 year old M <30 days status post TAVR in [facility]. Vince horan called for respiratory arrest. I was called by ICU staff to assist with airway management. On arrival, patient was being given positive pressure breaths at the bedside. He was beginning to respond and open eyes but had poor spontaneous respiratory efforts. He did resist my efforts at opening his mouth. Patient history discussed with ICU PA-C. The head was positioned in a sniffing position. At my direction, the patient was given 14mg of etomidate and 140mg of succinylcholine. Using a Mil2 blade, a grade 1 view was obtained. The cords were clear. An 8.0ETT was placed and secured 23cm at the lip. Continuous ETCO2 confirmed along with bilateral breath sounds. Vital signs were virtually unchanged throughout the procedure. Care returned to ICU staff.
[2018-02-07] MEDS ORDERED: FENTANYL CITRATE INJ 50 MCG/1 ML 2 ML VIAL IV STA (22:16)
[2018-02-07] MEDS ORDERED: MIDAZOLAM 125MG/250ML D5W 250 ML IV PRN (22:25)
[2018-02-07] MEDS ORDERED: FENTANYL 1250MCG/250ML NSS IV PRN (22:30)
[2018-02-07] MEDS ORDERED: FENTANYL 1250MCG/250ML NSS 250 ML IV PRN (22:30)
[2018-02-07 22:47] LABS: CREATININE 2.36 mg/dl (0.60-1.40)
[2018-02-07] MEDS ORDERED: NOREPINEPHRINE BIT INJ 8 MG in DEXTROSE 5% 500ML 500 ML IV PRN (22:54)
--- NOTE | 2018-02-07 22:59 | DIAGNOSTIC IMAGING REPORT ---
CHEST ONE VIEW PORTABLE CLINICAL HISTORY: Respiratory arrest COMPARISON STUDY: 02/07/2018 FINDINGS: The heart remains enlarged. Aortic valve replacement is again evident. There is asymmetric pulmonary edema right greater than left. There is a persistent right pleural effusion. There are postsurgical changes of a midline sternotomy. There is a right subclavian dual-chamber central venous pacemaker. There is been interval placement of a left subclavian central venous catheter. The tip projects over the atriocaval junction. There is no pneumothorax. There is been interval placement of endotracheal tube positioned 4.5 cm above the maxx. IMPRESSION: 1. Interval placement of an endotracheal tube 4.5 cm above the maxx 2. Interval placement of a left subclavian central venous catheter. No evidence of pneumothorax 3. Slight improvement in the asymmetric pulmonary edema pattern. Right pleural effusion. Electronically signed by: Adin Frye M.D. 02/07/2018 10:58 PM Dictated Date/Time: 02/07/2018 10:56 PM
[2018-02-07] MEDS ORDERED: NURSING DECISION MEDICATION ORDER SCH (23:00)
[2018-02-07] MEDS ORDERED: DOBUTamine / D5W 500 MG IV PRN (23:00)
[2018-02-07 23:08] LABS: MEAN CORPUSCULAR HGB CONC 30.8 g/dl (32-36); NUCLEATED RED BLOOD CELL ABS 0.04 K/uL (0-0)
[2018-02-07 23:15] LABS: HEMATOCRIT 34.1 % (42-52); HEMOGLOBIN 10.5 g/dL (14.0-18.0); MEAN CELL VOLUME 87.7 fL (80-100); RED CELL DISTRIBUTION WIDTH CV 19.1 % (11.5-14.5); WHITE BLOOD COUNT 15.62 K/uL (4.8-10.8)
[2018-02-07] MEDS ORDERED: NOREPINEPHRINE BIT INJ 4 MG in DEXTROSE 5% 250ML 250 ML IV PRN (23:15)
--- NOTE | 2018-02-07 23:15 | Critical Care Progress Note ---
Critical Care Progress Note Date of Service Feb 07, 2018. Attending Dr. 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 fib with cardioversion, he had a MIR done in September prior to the cardioversion, the patient did have significant aortic stenosis as well and status post transcatheter aortic valve replacement done at [facility] in [place], the procedure was done 3 weeks ago, the patient was doing well after the procedure and he was even driving his car up until a few days ago when he started having increased lethargy, the patient was brought to the ED where he was found to be in rapid A. fib, patient initially admitted to telemetry and transferred to the ICU due to persistent shortness of breath and congestive heart failure for invasive monitoring. Initially the procedure were declined by the and wanted him to be transferred to [facility]. The patient was in the process of doing so in the morning however tonight, the patient become apneic bradycardic requiring intubation immediately. The patient was intubated and was noted to be hypotensive and he is totally paced with a pacemaker at a rate of 60. The patient did not have any review of system to give at this point. Due to the need for resuscitative lines, the patient had left subclavian central line as well as left radial line which was dictated separately. Initial CVP was 23 and blood pressure was reading at 79/39. In that regard the patient was started on dobutamine and Levophed to increase contractility and improve his hemodynamics. In addition to the above, the patient was found to have positive blood culture 2 out of 2 bottles with gram-positive cocci and started empirically on vancomycin and Zosyn, concerns of endocarditis were raised especially with recent manipulation of the heart. 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 Currently the patient is intubated, sedated with fentanyl and Versed, started on dobutamine and Levophed, post intubation ABG was acceptable, the vent settings were adjusted. The patient was placed also on amiodarone due to rapid A. fib and started on Lasix drip earlier. Due to the low blood pressures currently both of them are stopped. Chest x-ray was done which confirmed the line placement with no complication. The patient has a right-sided pacemaker in place in the subclavian position. Objective His physical exam revealed chronically critically ill, patient does not have any following commands, he does have traces of blood from the nostrils, bleeding also was noted from the Grimm catheter, currently blood pressure 79/39 , heart rate is 60 paced, distant breath sounds bilaterally, hyperinflated chest , abdomen is also with distended abdomen likely representing ascites, no edema in the periphery. Assessment & Plan 1. Cardiogenic shock. 2. Decompensated heart failure. 3. Bacteremia with gram-positive cocci, endocarditis until proven otherwise. 4. Aortic stenosis status post transcatheter aortic valve replacement done at [facility]. 5. Acute respiratory failure requiring intubation. 6. Epistaxis, the patient is already on Pradaxa and likely his level of anticoagulation above therapeutic. 7. History of radiation pneumonitis secondary to treatment of Hodgkin lymphoma over 30 years ago. 8. History of right hemidiaphragm paralysis post CABG. 9. History of CABG, recent PCI in 2014 showed occluded grafts. The patient did have 2 stents placed 1 to the left circumflex and another one to OM 1. 10. History of A. fib, status post pacemaker in place, managed with sotalol and currently was on amiodarone drip and currently off the amiodarone drip. 11. Borderline diabetes. Plan: 1. We will transfuse CVP. We will keep the CVP below 16 if possible. 2. Start the patient on dobutamine. 3. Although the patient had recent echocardiogram which showed well-preserved left ventricle, I doubt it after the event that his left ventricle still functional in a comfortable way. 4. I performed bedside echocardiogram which showed the right ventricle is not dilated, triangular in shape, but the contractility probably in the range of 35% . 5. Continue broad-spectrum antibiotic with vancomycin and Zosyn. 6. A line placement. 7. Central line was placed in the left subclavian area. 8. Obtain labs including comprehensive metabolic panel. 9. Check lactic acid level and troponin. 10. Discussed with Dr. Ontiveros via my colleague Дмитрий Liu. 11. Hold off on Pradaxa for the time being, heparin drip will be more ideal. 12. The patient will need MIR to evaluate the valve and the possibility of vegetation. 13. Arrange for transfer to tertiary care center if possible. 14. We will hold off on the transferring to [place] at this point as the patient is not stable enough to stand for such a trip. 15. Case discussed with the staff and details. Discussed with the at the bedside. All are in agreement. CCT was 60 minutes excluding procedure times. Data Medications: Current Inpatient Medications Medications (Trade) Dose Ordered Sig/Veronica Route Start Time Stop Time Status Last Admin Dose Admin Acetaminophen (Tylenol Tab) 650 mg Q4H PRN PO 02/07/18 07:45 03/09/18 07:44 Al Hydrox/Mg Hydrox/Simethicone (Maalox Max Susp) 15 ml Q4H PRN PO 02/07/18 07:45 03/09/18 07:44 Magnesium Hydroxide (Milk Of Magnesia Susp) 30 ml Q12H PRN PO 02/07/18 07:45 03/09/18 07:44 Nitroglycerin (Nitrostat Tab) 0.4 mg UD PRN SL 02/07/18 07:45 03/09/18 07:44 Potassium Chloride (Klor-Con M10) 10 meq BID PO 02/07/18 21:00 03/09/18 20:59 Magnesium Oxide (Mag-Ox Tab) 400 mg QAM PO 02/08/18 09:00 03/10/18 08:59 Aspirin (Ecotrin Tab) 81 mg QAM PO 02/07/18 10:00 03/09/18 09:59 02/07/18 12:47 81 MG Atorvastatin Calcium (Lipitor Tab) 20 mg QPM PO 02/07/18 21:00 03/09/18 20:59 Levothyroxine Sodium (Synthroid Tab) 175 mcg DAILYBB PO 02/08/18 06:00 03/10/18 05:59 Metoprolol Tartrate (Lopressor Tab) 25 mg QPM PO 02/07/18 21:00 03/09/18 20:59 Metoprolol Tartrate (Lopressor Tab) 50 mg QAM PO 02/07/18 10:00 03/09/18 09:59 02/07/18 12:47 50 MG Miscellaneous Information (Order Awaiting Action) 1 ea QS N/A 02/07/18 16:00 03/09/18 15:59 Amiodarone HCL/ Dextrose 200 ml @ 16.7 mls/hr [id number] IV 02/07/18 16:09 03/09/18 16:08 02/07/18 16:17 16.7 MLS/HR Sotalol HCl (Betapace Tab) 120 mg BID PO 02/07/18 21:00 03/09/18 20:59 Pantoprazole Sodium 40 mg/ Syringe 10 ml @ 5 mls/min DAILY@1100 IV 02/08/18 11:00 03/10/18 10:59 Levalbuterol (Xopenex 1.25MG/ 0.5ML Neb) 1.25 mg Q4R INH 02/07/18 12:00 03/09/18 11:59 02/07/18 20:25 1.25 MG Ipratropium Beardsley (Atrovent 0.02% 0.5MG/2.5ML Neb) 0.5 mg Q4R INH 02/07/18 12:00 03/09/18 11:59 02/07/18 20:25 0.5 MG Miscellaneous Information (Icu Protocol For Hyperglycemia) 1 ea PRN PRN N/A 02/07/18 10:00 02/09/18 09:59 Furosemide 100 mg/ Dextrose 100 ml @ 5 mls/hr Q20H IV 02/07/18 11:00 03/09/18 10:59 02/07/18 11:16 5 MLS/HR Glucose (Glucose 40% Gel) 15-30 GRAMS 15 GRAMS... UD PRN PO 02/07/18 16:45 03/09/18 16:44 Glucose (Glucose Chew Tab) 4-8 Tablets 4 Tabl... UD PRN PO 02/07/18 16:45 03/09/18 16:44 Dextrose (Dextrose 50% 50ML Syringe) 25-50ML OF 50% DW IV FOR... UD PRN IV 02/07/18 16:45 03/09/18 16:44 Glucagon (Glucagon Inj) 1 mg UD PRN SQ 02/07/18 16:45 03/09/18 16:44 Dabigatran (Pradaxa Cap) 150 mg BID PO 02/08/18 06:00 03/10/18 05:59 Vancomycin HCl 1750 mg/Sodium Chloride 535 ml @ 200 mls/hr Q18H IV 02/08/18 08:00 02/21/18 07:59 Miscellaneous Information (Consult) 1 ea UD PRN N/A 02/07/18 18:15 03/09/18 18:14 Miscellaneous Information (Consult) 1 ea UD PRN N/A 02/07/18 18:15 03/09/18 18:14 Piperacillin Sod/ Tazobactam Sod 4.5 gm/Sodium Chloride 120 ml @ 30 mls/hr Q8H IV 02/08/18 00:00 02/22/18 00:00 Midazolam HCl 250 ml @ 0 mls/hr Q0M PRN IV 02/07/18 22:25 03/09/18 22:24 02/07/18 22:58 2 MLS/HR Fentanyl Citrate 250 ml @ 0 mls/hr Q0M PRN IV 02/07/18 22:30 02/21/18 22:29 Dobutamine HCl 250 ml @ 0 mls/hr Q0M PRN IV 02/07/18 23:00 03/09/18 22:59 Norepinephrine Bitartrate 8 mg/ Dextrose 508 ml @ 0 mls/hr Q0M PRN IV 02/07/18 22:54 03/09/18 22:53 Insulin Aspart (novoLOG ASPART) SLIDING SCALE G... Q6 SC 02/08/18 00:00 03/10/18 00:00 I & O: 24-Hour Column 02/08/18 08:00 Intake Total 535 ml Output Total 1350 ml Balance -815 ml Vital Signs: Date Time Temp Pulse Resp B/P (MAP) Pulse Ox O2 Delivery O2 Flow Rate FiO2 02/07/18 21:31 61 34 98/31 (53) Mechanical Ventilator 02/07/18 21:30 60 02/07/18 21:27 60 27 81/44 (56) Mechanical Ventilator 02/07/18 21:21 60 24 91/ (30) 98 Mechanical Ventilator 02/07/18 21:20 100 02/07/18 21:16 63 24 88/49 (62) 95 Mechanical Ventilator 02/07/18 21:13 68 21 101/76 (84) 97 Mechanical Ventilator 02/07/18 21:01 84 39 85/52 (63) 87 Oxymask 4.0 02/07/18 20:31 105 42 84/48 (60) 95 Oxymask 4.0 02/07/18 20:30 110 31 78/54 (62) 95 Oxymask 4.0 02/07/18 20:25 104 22 100 Nasal Cannula 6.0 02/07/18 20:02 36.5 108 27 97/54 (68) 97 Nasal Cannula 4.0 02/07/18 20:00 Nasal Cannula 6.0 02/07/18 19:46 109 24 81/52 (62) 100 Nasal Cannula 6.0 02/07/18 19:16 111 31 75/55 (62) 99 Nasal Cannula 6.0 02/07/18 19:01 113 35 87/54 (65) 95 Nasal Cannula 6.0 02/07/18 18:25 37.2 120 20 101/62 (75) 96 Nasal Cannula 6.0 02/07/18 16:00 110 16 95/58 (70) 94 Nasal Cannula 6.0 02/07/18 16:00 Nasal Cannula 6.0 02/07/18 15:39 109 22 93 Nasal Cannula 6.0 02/07/18 14:00 110 18 88/65 (73) 96 Nasal Cannula 6.0 02/07/18 12:00 96 Oxymask 4.0 02/07/18 12:00 36.9 132 18 94/46 (62) 97 Oxymask 4.0 02/07/18 11:26 112 18 97 Nasal Cannula 4.0 02/07/18 11:00 36.9 113 18 89/54 (66) 96 Oxymask 4.0 02/07/18 10:15 36.9 131 22 89/56 (67) 100 7.0 02/07/18 09:54 147 24 105/74 (84) 98 02/07/18 09:46 154 31 97/66 (76) 95 02/07/18 09:45 138 34 95 02/07/18 09:31 148 86/52 (63) 18 09:29 150 152/97 02/07/18 08:55 160 36 96 02/07/18 08:41 146 35 94 02/07/18 08:31 121/71 02/07/18 08:26 108 30 94 02/07/18 08:11 102 41 92 02/07/18 08:01 100 36 137/71 93 BiPAP 02/07/18 08:01 136/71 02/07/18 07:59 102 02/07/18 07:56 101 35 92 02/07/18 07:46 145/75 02/07/18 07:41 103 41 96 02/07/18 07:38 99 97 6.0 02/07/18 07:36 102 24 133/68 95 BiPAP 02/07/18 07:31 133/68 02/07/18 07:28 96 BiPAP 02/07/18 07:26 99 29 95 02/07/18 07:21 101 96 02/07/18 07:16 105 96 02/07/18 07:11 103 94 02/07/18 07:06 106 95 02/07/18 07:01 101 42 159/74 95 02/07/18 06:56 102 28 96 02/07/18 06:51 102 36 97 02/07/18 06:46 93 35 96 02/07/18 06:41 94 31 96 02/07/18 06:36 96 32 96 02/07/18 06:31 96 32 95 02/07/18 06:26 95 31 93 02/07/18 06:21 96 45 93 02/07/18 06:16 93 42 96 02/07/18 06:11 145/84 02/07/18 06:08 145/84 02/07/18 06:05 90 26 99 Nasal Cannula 6.0 02/07/18 05:35 94 24 97 Nasal Cannula 6.0 02/07/18 05:25 91 02/07/18 05:24 93 Nasal Cannula 6.0 02/07/18 05:23 93 Nasal Cannula 6.0 02/07/18 05:14 93 Nasal Cannula 6.0 02/07/18 05:14 36.5 96 20 151/71 93 Nasal Cannula 6.0 02/07/18 05:11 151/71 Laboratory Results: Last 24 Hours Test 02/07/18 05:13 02/07/18 05:15 02/07/18 09:30 02/07/18 09:40 White Blood Count 10.98 K/uL Red Blood Count 4.02 M/uL Hemoglobin 10.9 g/dL Hematocrit 34.2 % Mean Corpuscular Volume 85.1 fL Mean Corpuscular Hemoglobin 27.1 pg Mean Corpuscular Hemoglobin Concent 31.9 g/dl Platelet Count 103 K/uL Neutrophils (%) (Auto) 89.8 % Lymphocytes (%) (Auto) 1.4 % Monocytes (%) (Auto) 8.1 % Eosinophils (%) (Auto) 0.2 % Basophils (%) (Auto) 0.2 % Neutrophils # (Auto) 9.87 K/uL Lymphocytes # (Auto) 0.15 K/uL Monocytes # (Auto) 0.89 K/uL Eosinophils # (Auto) 0.02 K/uL Basophils # (Auto) 0.02 K/uL RDW Standard Deviation 58.8 fL RDW Coefficient of Variation 18.7 % Immature Granulocyte % (Auto) 0.3 % Immature Granulocyte # (Auto) 0.03 K/uL Platelet Estimate DECREASED Red Blood Cell Morphology Unremarkable Prothrombin Time 13.8 SECONDS Prothromb Time International Ratio 1.3 Activated Partial Thromboplast Time 36.5 SECONDS Partial Thromboplastin Ratio 1.4 D-Dimer 1080 ug/L FEU Sodium Level 131 mmol/L Potassium Level 4.4 mmol/L Chloride Level 98 mmol/L Carbon Dioxide Level 24 mmol/L Anion Gap 9.0 mmol/L Blood Urea Nitrogen 32 mg/dl Creatinine 1.12 mg/dl Est Creatinine Clear Calc Drug Dose 69.3 ml/min Estimated GFR () 75.1 Estimated GFR (Non- 64.8 BUN/Creatinine Ratio 28.4 Random Glucose 173 mg/dl Calcium Level 8.7 mg/dl Magnesium Level 1.8 mg/dl Total Bilirubin 1.3 mg/dl Direct Bilirubin 0.5 mg/dl Aspartate Amino Transf (AST/SGOT) 28 U/L Alanine Aminotransferase (ALT/SGPT) 24 U/L Alkaline Phosphatase 113 U/L Total Creatine Kinase 110 U/L Troponin I 0.020 ng/ml Pro-B-Type Natriuretic Peptide 1860 pg/ml Total Protein 8.0 gm/dl Albumin 3.3 gm/dl Lyme Disease IgG Antibody NEG Lyme Disease IgM Antibody NEG Urine Color YELLOW YELLOW Urine Appearance CLEAR CLEAR Urine pH 5.0 5.0 Urine Specific [place] 1.023 1.012 Urine Protein 2+ NEG Urine Glucose (UA) NEG NEG Urine Ketones NEG NEG Urine Occult Blood NEG 1+ Urine Nitrite NEG NEG Urine Bilirubin NEG NEG Urine Urobilinogen NEG NEG Urine Leukocyte Esterase NEG NEG Urine WBC (Auto) 1-5 /hpf 0 /hpf Urine RBC (Auto) 0-4 /hpf 0-4 /hpf Urine Hyaline Casts (Auto) 0 /lpf 1-5 /lpf Urine Epithelial Cells (Auto) 10-20 /lpf 5-10 /lpf Urine Bacteria (Auto) NEG NEG Bedside Glucose 167 mg/dl Test 02/07/18 09:45 02/07/18 10:01 02/07/18 11:50 02/07/18 13:39 Influenza Type A (RT-PCR) Neg for Influ A Influenza Type B (RT-PCR) Neg for Influ B Blood Gas Sample Site L Radial Bedside Blood Gas pH (LAB) 7.49 Bedside Blood Gas pCO2 (LAB) 35 mmHg Bedside Blood Gas pO2 (LAB) 69 mmHg Bedside Blood Gas HCO3 (LAB) 27 meq/L Bedside Blood Gas Total CO2 28 mEq/l Bedside Blood Gas Base Excess (LAB) 4.0 meq/L Bedside Blood Gas O2 Saturation 95.0 % Pillo Test Pass Oxygen Delivery Device BIPAP Bedside Oxygen Rate (breaths/min) 34 Bedside FiO2 0 % Blood Gas IPAP 10 Bedside Glucose 168 mg/dl Sodium Level 134 mmol/L Potassium Level 3.8 mmol/L Chloride Level 97 mmol/L Carbon Dioxide Level 27 mmol/L Anion Gap 10.0 mmol/L Blood Urea Nitrogen 29 mg/dl Creatinine 1.34 mg/dl Est Creatinine Clear Calc Drug Dose 58.0 ml/min Estimated GFR () 60.5 Estimated GFR (Non- 52.2 BUN/Creatinine Ratio 21.6 Random Glucose 173 mg/dl Calcium Level 8.6 mg/dl Troponin I 0.138 ng/ml Test 02/07/18 15:00 02/07/18 16:22 02/07/18 16:26 02/07/18 19:35 Urine Color ORANGE Urine Appearance TURBID Urine pH 5.0 Urine Specific [place] 1.020 Urine Protein 2+ Urine Glucose (UA) NEG Urine Ketones NEG Urine Occult Blood 3+ Urine Nitrite NEG Urine Bilirubin NEG Urine Urobilinogen NEG Urine Leukocyte Esterase MODERATE Urine WBC (Auto) 10-30 /hpf Urine RBC (Auto) >30 /hpf Urine Hyaline Casts (Auto) 5-10 /lpf Urine Epithelial Cells (Auto) >30 /lpf Urine Bacteria (Auto) NEG Urine Renal Epithelial Cells 0-5 /lpf Urine Pathogenic Casts /lpf Bedside Glucose 184 mg/dl 244 mg/dl Troponin I 0.183 ng/ml Test 02/07/18 21:26 02/07/18 22:00 02/07/18 22:38 Blood Gas Sample Site R Radial Bedside Blood Gas pH (LAB) 7.37 Bedside Blood Gas pCO2 (LAB) 38 mmHg Bedside Blood Gas pO2 (LAB) 273 mmHg Bedside Blood Gas HCO3 (LAB) 21 meq/L Bedside Blood Gas Total CO2 23 mEq/l Bedside Blood Gas Base Excess (LAB) -4.0 meq/L Bedside Blood Gas O2 Saturation 100.0 % Pillo Test Pass Oxygen Delivery Device BagValve Bedside FiO2 100 % Sodium Level 129 mmol/L Potassium Level 5.0 mmol/L Chloride Level 95 mmol/L Carbon Dioxide Level 20 mmol/L Anion Gap 14.0 mmol/L Blood Urea Nitrogen 40 mg/dl Creatinine 2.36 mg/dl Est Creatinine Clear Calc Drug Dose 32.9 ml/min Estimated GFR () 30.5 Estimated GFR (Non- 26.3 BUN/Creatinine Ratio 17.1 Random Glucose 260 mg/dl Calcium Level 8.0 mg/dl Creatine Kinase MB Ratio
--- NOTE | 2018-02-07 23:17 | Procedure Note ---
Procedure Note Procedure Date Feb 07, 2018. Procedure Description Procedure Name: Central line placement. Procedure time out: side/site verified, patient ID confirmed, correct procedure Consent obtained: emergent consent implied Performed by: attending Contraindications: none Description: Central line was needed for CVP monitoring and multiple drips. Consent was waived as a procedure was done emergently however the gave the verbal consent over the phone to my colleague. The patient was placed in supine position. Under strict sterile field using Seldinger technique, using ultrasound, anterior IJ on the left side was attempted, the skin was prepped with chlorhexidine and the patient was injected with 5 mL of lidocaine at the anterior IJ as well as what 5 mL of 1% lidocaine at the left subclavian. At the left IJ it was difficult to pass a wire and attempt was aborted. At the left subclavian was attempted on the left subclavian and it was successful with a wire passed in, noted on the monitor that did not interfere with the pacemaker wires, using a dilator but no scalpel, the line was placed to 20 cm and sutured with 2 sutures covered with surgical dressing and flushed with normal saline. Chest x-ray revealed the tip of the catheter at the SVC and no pneumothorax. Complications: none Patient tolerated procedure: well
--- NOTE | 2018-02-07 23:19 | Procedure Note ---
Procedure Note Procedure Date Feb 07, 2018. Procedure Description Procedure Name: A line placement. Procedure time out: side/site verified, patient ID confirmed, correct procedure Consent obtained: emergent consent implied Performed by: attending Contraindications: none Description: A line was placed in the left radial area, 2 attempts, Seldinger technique, strict sterile field, skin was prepped with chlorhexidine, the catheter was done and placed with the second attempt, the line was connected to the transducer, a waves were noted, the dicrotic notch was noted, the line was secured with 1 suture and covered with surgical dressing properly. No immediate complication. Complications: none Patient tolerated procedure: well
[2018-02-07 23:25] LABS: PHOSPHORUS 5.4 mg/dl (2.5-4.9); TOTAL PROTEIN 7.2 gm/dl (6.4-8.2)
[2018-02-07 23:27] LABS: ALBUMIN 2.9 gm/dl (3.4-5.0); CKMB 0.6 ng/ml (0.5-3.6)
[2018-02-07 23:44] LABS: PLATELET COUNT 73 K/uL (130-400)
[2018-02-07 23:45] LABS: BASO % 0.1 %; BASO ABS # 0.02 K/uL (0-0.2); IG# 0.07 K/uL (0.00-0.02); LYMPH % 2.3 %; LYMPH ABS # 0.36 K/uL (1.2-3.4); MONO % 4.7 %; MONO ABS # 0.74 K/uL (0.11-0.59); NEUT % 92.5 %; NEUT ABS # 14.43 K/uL (1.4-6.5)
[2018-02-08] MEDS ORDERED: PIPERACILL/TAZOBAC IV 4.5 GM in NSS 100 ML IV SCH ×2
[2018-02-08] MEDS ORDERED: LEValbuterol HFA 15GM INHALER INH SCH
[2018-02-08] MEDS ORDERED: INSULIN ASPART 100 UNITS/ML 3 ML PEN SC SCH
[2018-02-08] MEDS ORDERED: PIPERACILL/TAZOBAC IV 3.375 GM in DEXTROSE 5% 100ML 100 ML IV SCH ×2
[2018-02-08] MEDS ORDERED: IPRATROPIUM BROMIDE HFA INHALER INH SCH
--- NOTE | 2018-02-08 00:07 | Critical Care Progress Note ---
Critical Care Progress Note Date of Service Feb 08, 2018. Critical Care Progress Note After assuming care of the patient at change of shift, the patient developed some epistaxis which is not completely typical for the patient. I did order Afrin nasal spray. I did attempt to walk to the emergency department to get further equipment to control his nosebleed, however I was immediately called back to the ICU as the patient became obtunded and had essentially stopped breathing. Bag valve mask was in place with adequate oxygenation on my arrival. Anesthesia arrived and patient was intubated as described per their note. Central line and A-line were performed by my attending physician. I did contact [facility] and speak to Dr. Hollis who agrees to accept patient in transfer. Patient was started on levo fed as well as fentanyl and Versed drips. Patient was transferred via [facility] in fair condition. I have personally spent 35 minutes of critical care time in the direct management of this patient. This is a life/limb threatening event. This includes time spent evaluating patient, direct bedside care, chart review, placing orders, interpretation of diagnostic studies, discussion with consultants, patient, and family members, as well as other required patient management activities. This time is exclusive of all separately billable procedures, and teaching time and separate from and in addition to any other critical care service time.
[2018-02-08] MEDS ORDERED: DABIGATRAN ELEXILATE 75 MG CAP PO SCH (06:00)
[2018-02-08] MEDS ORDERED: LEVOTHYROXINE 175 MCG TAB PO SCH (06:00)
--- NOTE | 2018-02-08 07:58 | Discharge Summary ---
Discharge Summary Date of Service Feb 08, 2018. Discharge Summary Admission Date: Feb 07, 2018 at 07:50 Discharge Date: Feb 07, 2018 Discharge Disposition: Acute care facility ([facility] ) Principal Diagnosis: ACUTE HYPOXEMIC RESPIRATORY FAILURE /MECHANICAL VENTILATION /SEVERE SEPSIS IN SETTING OF GRAM POSITIVE BACTEREMIA /RECENT TAVR /AFLUTTER ACUTE CHF WITH POSSIBLE COMBINED RIGHT HEART AND DIASTOLIC DECOMPENSATION Procedures: CENTRAL LINE PLACEMENT ARTERIAL LINE PLACEMENT Consultations: PROFESSOR OF GEOLOGY -DR TORRES CARDIOLOGY DR ERIC Medication Reconciliation New Medications: [amiodarone IV] () 150 MG IV UD IV AMIDARONE GTT Continued Medications: Aspirin Enteric Coated (Ecotrin Or Generic) 81 Mg Tab 81 MG PO QAM, TAB Atorvastatin (Lipitor) 20 Mg Tab 20 MG PO QPM Dabigatran Etexilate Mesylate (Pradaxa) 110 Mg Cap 1 CAP PO BID Eplerenone (Eplerenone) 25 Mg Tab 25 MG PO QAM Magnesium Oxide (Mag-Ox) 400 Mg Tab 400 MG PO DAILY Metoprolol Tartrate (Lopressor) (Lopressor) 25 Mg Tab 1 TAB PO QPM Metoprolol Tartrate (Lopressor) (Lopressor) 25 Mg Tab 2 TABS PO QAM Nitroglycerin (Nitrostat) 0.4 Mg Tab 0.4 MG UT UD PRN for Chest Pain Potassium Chloride (Micro-K Ext Rel) 10 Meq Capcr 10 MEQ PO QPM Sotalol Hcl (Sotalol Hcl) 120 Mg Tab 1 TAB PO BID Discontinued Medications: Digestive Enzymes (Papaya Enzyme) 1 Tab Tab 1 TAB PO QAM Eszopiclone (Lunesta) 3 Mg Tab 3 MG PO HS Furosemide (Lasix) 20 Mg Tab 2 TABS PO DAILY Guaifenesin Ext Rel (Mucinex Ext Rel) 600 Mg Tabcr 2 TABS PO BID Lactase (Lactase Fast Acting) 9,000 Unit Tab 1 TAB PO WM PRN for DAIRY INTAKE TAKE 1 TABLET WITH FIRST BITE OF DAIRY FOOD Admission Information HPI (per Admitting provider): ,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 Repeat cardiac cath in November 2014 showed occlusion of all venous grafts except for saphenous vein grafts to the posterior descending artery. He received a drug-eluting stent to the left second flex distal segment, drug- eluting stent to the vein graft to the posterior descending artery, and balloon angioplasty of the first obtuse marginal . Patient has history of A. fib a flutter status post cardioversion, history of bradycardic cardiac arrest status post dual chamber pacemaker placement in October 2012 and [facility]. History of severe aortic stenosis, status post transcutaneous aortic valve replacement/T AVR on 01/15/2018 with bioprosthetic aortic valve at [facility] History is limited from the patient due to respiratory distress, on BiPAP, Increased lethargy Most of the information obtained from , present at bedside According to patient had uncomplicated recovery from test for done on January 15 at [facility] Was discharged in 48 hours, patient felt absolutely fine His prior shortness of breath/dyspnea on exertion/orthopnea was resolved Patient drove himself from [place] to [place] with complaining him Had a post procedure follow-up with Dr. Yg Rainey at [facility] cardiology suite on January 20, 2018 Patient reported improvement of exercise tolerance, dyspnea on exertion. Was frustrated as he was not feeling dramatically improved after followed replacement as he expected Postprocedure echocardiogram at [facility] showed only trace aortic insufficiency and preserved LV systolic function Patient had a trip to [place] next week, developed significant shortness of breath, dyspnea on exertion, marked fatigue with minimum activity, on pulse oximetry showed oxygen level dropping to low 80s with exertion On return to [place] had a appointment with Dr. Rainey on 02/03 2018 Repeat echocardiogram was ordered Lasix dose was increased to 40 mg daily for the next 3 days Arrangements made for home oxygen Past 48 hours patient's respiratory status declined further Able to sleep last night for significant shortness of breath, no improvement with supplemental oxygen In ER: Patient was found to be significantly hypoxic/tachypnea and respiratory distress/ Placed on BiPAP found to be in a flutter heart rate of 150-160 Chest x-ray shows pulmonary congestion ProBNP elevated 1080 Physical Exam (per Admitting): General Appearance: + moderate distress (Respiratory distress on BiPAP) Eyes: sclerae normal Neck: + JVD Respiratory/Chest: + respiratory distress, + decreased breath sounds, + accessory muscle use, + crackles, + rales Cardiovascular: + JVD, + irregularly irregular Abdomen/GI: non tender, soft Extremities/Musculoskelatal: + pedal edema (+1), + pertinent finding ( Increased fatigue/lethargy/able to open up eyes with voice and answer questions) Hospital Course ACUTE HYPOXEMIC RESPIRATORY FAILURE: -Presents with hypoxia orthopnea, 1 week history of dyspnea on exertion -Due to volume overload, acute CHF with history of diastolic dysfunction, patient also have interstitial lung disease with recent elevated pulmonary hypertension could be combination of acute right heart failure and/or diastolic decompensation -Given 40 mg IV Lasix in ER will be continued with 40 mg IV every 12 - Grimm catheter placed to monitor input output - BiPAP support for respiratory failure -Cardiology consulted -Patient is initially admitted to telemetry, transferred to ICU as no improvement of respiratory failure with IV diuretics/BiPAP -High risk of cardiopulmonary compromise given underlying complex medical history plan of care discussed with Cardiology and oysterman ACUTE CHF WITH HISTORY OF DIASTOLIC FAILURE Echo on 02/03/2018: At outpatient [facility] Aortic valvular prosthesis stenosis is absent Aortic root and proximal ascending aorta are normal Qualitative LV ejection fraction 60-64% (normal) Moderate left ventricular diastolic dysfunction grade 2 septal motion is abnormal consistent with right ventricular pressure and volume overload Estimated pulmonary artery systolic pressure is 54 mm Hg Presents with volume overload/orthopnea Started with IV Lasix 40 mg twice daily patient's transfer to ICU Lasix drip started by oysterman VALVULAR HEART DISEASE STATUS POST RECENT BIOPROSTHETIC TAVR History of severe symptomatic aortic stenosis/status post cardiac arrest in 2011 /ischemic cardiomyopathy prior ejection fraction 30% status post permanent pacemaker placement in 2011 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 pt was tx to ICU will need Corydon Zack catheter to assess rt heart pressure pt's refused to have any procedure done at [facility] , wanted pt to be transferred to [facility] concerned that pt can developed complication with central venous catheter placement with recent Aortic valve in place A FLUTTER/A. FIB hx of Afib /Aflutter s/p cardioversion in past has been on Sotalol /Pradaxa for anticoagulation -rapid ventricular rate with uncontrolled arrhythmia possible due to acute CHF / cardiac ischemia -pt started on Iv Amiodarone gtt -cardiology following closely SEVERE CORONARY ARTERY DISEASE -Diffuse coronary atherosclerosis disease dating back to 1995 with subsequent artery bypass graft in 2011, - repeat cardiac cath in November 2014 showed occlusion of all venous grafts except for saphenous vein graft to the posterior descending artery received drug -eluting stent to the left circumflex distal segment, drug-eluting stent to the vein graft to the posterior descending artery, and balloon angioplasty of the first obtuse marginal. -The preop cardiac cath in [place] prior to TAVR : showed luminal irregularity in the left main, left anterior descending artery coronary artery stent was patent with diffuse disease in the proximal segment, obtuse marginal of the circumflex had a 70% narrowing, the right coronary artery had 95% proximal and mid 100% stenosis reflecting chronic total occlusion. Vein graft to the right coronary artery was unable to be visualized. -Per patient's , patient did not had any anginal symptom-in the past 1 week , except for shortness of breath and dyspnea on exertion Patient will be continued with all cardiac meds Cardiology consulted appreciate input will need higher level of care/tertiary center for any cardiac intervention HISTORY OF PULMONARY INTERSTITIAL LUNG DISEASE/RADIATION PNEUMONITIS -Possibly leading to chronic pulmonary hypertension -Acute right heart failure leading to arrhythmia will benefit from central venous catheter/Corydon-Zack to assess RV pressure/ oxygen saturation -Family prefers patient to be transferred to [facility] for any cardiac procedure or intervention CODE STATUS: Full code-discussed with patient and DVT PROPHYLAXIS: Subcu heparin DISPOSITION Due to complex cardiac issue issues will need to be transferred to tertiary care patient and family prefers transfer to [facility] as he had recent cardiac procedure less than 3 weeks ago Case discussed with on-call cardiology Dr. Niall Juan by oysterman Dr. Torres and by myself Waiting for bed approval/and accepting physician Patient will be transferred to tertiary level care at [facility] for continuation of care as bed is available EVENING UPDATE: PT DEVELOPED SEVERE EPISTAXIS LEADING TO UNRESPONSIVENESS /HYPOTENSION / RESPIRATORY FAILURE CODE BLUE WAS CALLED pt was intubated for respiratory support , Central line and A line was placed by Accountant Budget started on pressors life flighted to [facility] Total time spent on discharge =40 MINS This includes examination of the patient, discharge planning, medication reconciliation, and communication with other providers. Discharge Instructions INITIAL PLAN WAS TRANSFER PT TO [facility] PER FAMILY / WISH PATIENT HAD RECENT TAVR AT [place] ON 01/15/18 AND HIS CARDIOLOGY TEAM WAS AT THAT HOSPITAL WHILE WAITING TO BE TRANSFERRED TO [place] PT DEVELOPED ACUTE RESPIRATORY FAILURE /SEVER EPISTAXIS AFTER PRADAXA ( PT'S HOME MED ) FOR ANTICOAGULATION IS SETTING OF AFLUTTER /AFIB REQUIRED MECHANICAL VENTILATION PRESSURE SUPPORT FOR HYPOTENSION -SEVERE SEPSIS BLOOD CULTURES X2 ; GRAM POSITIVE COCCI PT WAS LIFE FLIGHTED EMERGENTLY TO [facility] Additional Copies To Yg Rainey M.D.
[2018-02-08] MEDS ORDERED: VANCOMYCIN IV 1,750 MG in SODIUM CHLORIDE 0.9% 500ML 500 ML IV SCH (08:00)
[2018-02-08] MEDS ORDERED: MAGNESIUM OXIDE 400 MG TAB PO SCH (09:00)
[2018-02-08] MEDS ORDERED: PANTOprazole INJ 40 MG in SYRINGE 0 ML IV SCH (11:00)
--- NOTE | 2018-02-09 12:47 | EDITING REQUIRED CODING QUERY ---
CODING QUERY To promote full compliance with coding requirements relating to patient care, provider participation is requested in all cases of casino attendant uncertainty. Please assist us with the question(s) below: Coding Question(s): The Discharge Summary documents Severe Sepsis and the 02/07/18 Critical Care Progress Note documents endocarditis until proven otherwise. Please specify below, in your clinical opinion, the relationship, if any, to the recently replaced heart valve. ( x ) Severe Sepsis and likely Endocarditis are possibly due to infection due to recently placed cardiac valve prosthesis ( ) Severe Sepsis and likely Endocarditis are not due to infection due to recently placed cardiac valve prosthesis Physician's Response(s): Thank you Monalisa Hagan Principal Diagnosis: "_that condition established after study, to be chiefly responsible for occasioning the admission of the patient to the hospital for care." Co-Existing Principal Diagnosis: "_when two or more diagnoses equally meet the criteria for principal diagnosis as determined by the circumstances of admission, diagnostic work up, and/or therapy provided, and the Alphabetic Index, Tabular List, or another coding guideline does not provide sequencing direction, any one of the diagnoses may be sequenced first." "When the physician has documented what appears to be a current diagnosis in the body of the record, but has not included the diagnosis in the final diagnostic statement, the physician should be asked whether the diagnosis should be added." (Source Coding Clinic 2 QTR90. p3-4)
[2018-02-09] MEDS ORDERED: VANCOMYCIN TROUGH ONE (19:30)
--- NOTE | 2018-03-03 14:14 | Medical Consult ---
Consultation Note Date of Service March 03, 2018. Consultation Note Infectious disease consultation was requested at 19: 51 on February 07 2018. Patient was transferred to [facility] early the next morning, prior to arrival to see patient. Therefore no Infectious Disease consultation was performed.
== END 2018-02-08 00:30 | disposition short-term general hospital (02) | DRG 314 ==
LOC: EDBD 05:05 → C.EDB 05:07 → C.2T 07:50 → ENRESERV 08:18 → C.2E 09:19 → C.MSICU 10:06
PROVIDERS: ADMIT Hospitalist; ATTEND Hospitalist
PROC: 5A1935Z Respiratory Ventilation, Less than 24 Consecutive Hours (ICD-10-PCS; principal; 2018-02-07)
PROC: 0BH13EZ Insertion of Endotracheal Airway into Trachea, Percutaneous Approach (ICD-10-PCS; principal; 2018-02-07)
PROC: 02HV33Z Insertion of Infusion Device into Superior Vena Cava, Percutaneous Approach (ICD-10-PCS; 2018-02-07)
PROC: 03HC33Z Insertion of Infusion Device into Left Radial Artery, Percutaneous Approach (ICD-10-PCS; 2018-02-07)
DX: T82.6XXA Infection and inflammatory reaction due to cardiac valve prosthesis, initial encounter (principal); A41.9 Sepsis, unspecified organism; I33.0 Acute and subacute infective endocarditis; R65.20 Severe sepsis without septic shock; I50.33 Acute on chronic diastolic (congestive) heart failure; J96.01 Acute respiratory failure with hypoxia; R57.0 Cardiogenic shock; R09.2 Respiratory arrest; J70.0 Acute pulmonary manifestations due to radiation; I48.92 Unspecified atrial flutter; B96.89 Other specified bacterial agents as the cause of diseases classified elsewhere; R04.0 Epistaxis; I48.0 Paroxysmal atrial fibrillation; I27.29 Other secondary pulmonary hypertension; J84.89 Other specified interstitial pulmonary diseases; J98.6 Disorders of diaphragm; E11.9 Type 2 diabetes mellitus without complications; E03.9 Hypothyroidism, unspecified; K21.9 Gastro-esophageal reflux disease without esophagitis; E73.9 Lactose intolerance, unspecified; I25.10 Atherosclerotic heart disease of native coronary artery without angina pectoris; Z51.81 Encounter for therapeutic drug level monitoring; Z79.899 Other long term (current) drug therapy; Z79.01 Long term (current) use of anticoagulants; Z79.84 Long term (current) use of oral hypoglycemic drugs; Z79.82 Long term (current) use of aspirin; Z95.2 Presence of prosthetic heart valve; Z85.71 Personal history of Hodgkin lymphoma; Z92.21 Personal history of antineoplastic chemotherapy; Z92.3 Personal history of irradiation; Z86.74 Personal history of sudden cardiac arrest; Z95.1 Presence of aortocoronary bypass graft; Z95.0 Presence of cardiac pacemaker; Z95.5 Presence of coronary angioplasty implant and graft; Z88.2 Allergy status to sulfonamides; W88.1XXS Exposure to radioactive isotopes, sequela; Y83.1 Surgical operation with implant of artificial internal device as the cause of abnormal reaction of the patient, or of later complication, without mention of misadventure at the time of the procedure